=== PATIENT | male | born 1975 ===

== ENCOUNTER 2016-11-05 14:12 | Inpatient (IN) | payer OTHER ==
[2016-11-05 14:38] VITALS: BMI 34.3
[2016-11-05] MEDS ORDERED: Aspirin 325 mg EC Tablets PO STA (15:12)
[2016-11-05] MEDS ORDERED: Aspirin 325 mg EC Tablets PO ONE (15:18)
[2016-11-05 15:40] LABS: BASO # 0.2 K/uL (0.0-0.2); BASO % 1.3 % (0.0-2.0); EOS % 0.1 % (0.0-4.0); LYMPH # 3.6 K/uL (1.0-4.3); LYMPH % 25.3 % (20.0-40.0); MEAN CELL VOLUME 88.2 fL (80.0-94.0); MEAN CORPUSCULAR HEMOGLOBIN 30.5 pg (27.0-31.0); MEAN CORPUSCULAR HGB CONC 34.6 g/dL (33.0-37.0); MEAN PLATELET VOLUME 9.5 fL (7.2-11.7); MONO # 1.4 K/uL (0.0-0.8); MONO % 9.8 % (0.0-10.0); NRBC % 0.1 % (0.0-2.0); RED CELL DISTRIBUTION WIDTH 12.4 % (11.5-14.5); WHITE BLOOD COUNT 14.1 K/uL (4.8-10.8)
--- NOTE | 2016-11-05 15:41 | RAD ---
PROCEDURE: CHEST RADIOGRAPH, 1 VIEW HISTORY: chest pain COMPARISON: None available. FINDINGS: LUNGS: Clear. PLEURA: No pneumothorax or pleural fluid seen. CARDIOVASCULAR: Normal. OSSEOUS STRUCTURES: No significant abnormalities. VISUALIZED UPPER ABDOMEN: Normal. OTHER FINDINGS: None. IMPRESSION: No active disease.
[2016-11-05 15:48] LABS: INR 1.1
[2016-11-05 15:52] LABS: RBC URINE 4 /hpf (0-3); URINE BILIRUBIN NEGATIVE (NEGATIVE); URINE BLOOD NEGATIVE (NEGATIVE); URINE COLOR Yellow (YELLOW); URINE GLUCOSE (UA) 2+ mg/dL (Normal); URINE KETONE 1+ mg/dL (NEGATIVE); URINE LEUKOCYTE ESTERASE NEG Leu/uL (Negative); URINE PROTEIN 3+ mg/dL (NEGATIVE); URINE UROBILINOGEN NORMAL mg/dL (0.2-1.0); WBC URINE 2 /hpf (0-5)
[2016-11-05 15:58] LABS: CHLORIDE 93 mmol/L (98-107); POTASSIUM 3.9 mmol/L (3.6-5.2); SODIUM 137 mmol/L (132-148)
[2016-11-05 16:00] LABS: ALB/GLOB RATIO 1.1 (1.0-2.1); ALKALINE PHOSPHATASE 92 U/L (38-126); ALT/SGPT 56 U/L (21-72); AST/SGOT 54 U/L (17-59); BLOOD UREA NITROGEN 12 mg/dL (9-20); CALCIUM 9.5 mg/dl (8.6-10.4); CARBON DIOXIDE 29 mmol/L (22-30); GFR AFRICAN-AMERICAN > 60; GLUCOSE,RANDOM 292 mg/dL (75-110); TOTAL PROTEIN 8.2 g/dL (6.3-8.3)
[2016-11-05 16:01] LABS: ALCOHOL SERUM < 10 mg/dl (0-10); CHOLESTEROL 258 mg/dL (0-199); MAGNESIUM 1.6 mg/dL (1.6-2.3)
--- NOTE | 2016-11-05 16:26 | C.PDOC ---
Time Seen by Provider: 11/05/16 15:04 Chief Complaint (Nursing): Chest Pain History Per: Patient, Family Onset/Duration Of Symptoms: Hrs (14) Current Symptoms Are (Timing): Gone Severity: Moderate Quality: "Pain" Associated Symptoms: Nausea Modifying Factors: Other Indicated Below Alleviating Factors: None Additional History Per: Prior Records Past Medical History Reviewed: Historical Data, Nursing Documentation, Vital Signs Vital Signs: Last Vital Signs Temp 98.4 F 11/05/16 14:38 Pulse 100 H 11/05/16 16:02 Resp 20 11/05/16 16:02 BP 123/71 11/05/16 16:02 Pulse Ox 97 11/05/16 16:26 - Medical History PMH: HTN (?) Surgical History: No Surg Hx Family History: States: Unknown Family Hx - Social History Hx Tobacco Use: Yes Hx Alcohol Use: Yes Hx Substance Use: No - Immunization History Hx Tetanus Toxoid Vaccination: No Hx Influenza Vaccination: No Hx Pneumococcal Vaccination: No Review Of Systems Except As Marked, All Systems Reviewed And Found Negative. Constitutional: Negative for: Fever, Weakness Cardiovascular: Positive for: Chest Pain Respiratory: Positive for: Cough (?). Negative for: Hemoptysis Gastrointestinal: Positive for: Abdominal Pain (resolved). Negative for: Vomiting Musculoskeletal: Negative for: Neck Pain, Leg Pain Skin: Negative for: Rash Neurological: Positive for: Headache. Negative for: Weakness, Numbness, Seizures, Altered Mental Status Physical Exam - Physical Exam Appears: Non-toxic, No Acute Distress Skin: Normal Color, Warm, Dry, No Rash Head: Atraumatic, Normacephalic Eye(s): bilateral: Normal Inspection, PERRL, EOMI Neck: Normal ROM, Supple Cardiovascular: Rhythm Regular Respiratory: Normal Breath Sounds, No Accessory Muscle Use Gastrointestinal/Abdominal: Soft, No Tenderness Back: No CVA Tenderness Extremity: Normal ROM, No Pedal Edema, No Calf Tenderness Neurological/Psych: Oriented x3, Normal Motor, Normal Sensation ED Course And Treatment - Laboratory Results Result Diagrams: 11/05/16 15:36 11/05/16 15:36 Lab Interpretation: Abnormal Interpretation Of Abnormal: Positive Troponin. Hyperglycemia. Hyperlipidemia. ECG: Interpreted By Me, Viewed By Me ECG Rhythm: Sinus Tachycardia, Nonspecific Changes ECG Interpretation: Abnormal Interpretation Of ECG: Q waves in septal leads and ST elevation in lead V2 only with no reciprocal changes. Rate From EC O2 Sat by Pulse Oximetry: 97 Pulse Ox Interpretation: Normal - Radiology CXR: Viewed By Me, Read By Radiologist CXR Interpretation: Yes: No Acute Disease - Physician Consult Information Physician Contacted: Moshe Carrillo (Cardiology) Outcome Of Conversation: He wants pt admitted to the ICU and given Lovenox 90mg SC, Crestor 40mg po, Plavix 300mg po, and Coreg 3.125mg po. Progress - Interventions Interventions:: Observation, Oxygen - Medications Administered Oral: Antihypertensive, Aspirin, Other (Plavix) Subcutaneous: other (Lovenox) - Data Reviewed Data Reviewed: Lab, Diagnostic imaging, EKG, Old records - Patient Status Patient status: Mostly improved - Critical Care Citical Care: Excluding Proc Time Critical Care Time: 45 minutes - Continuity of Care Discussed patient case with:: Patient, Family-HIPPA compliant, ED Nurse, PMD Discussed pt. case with independent marketing consultant/specialty: Cardiology, Pulmonary/Crit. Care - Patient Plan Patient Plan: Admission, ICU Disposition Discussed With DrEliza: Shira Angel Comment: He accepted pt on his service and wants Dr. Carrillo to be consulted. Counseled Patient/Family Regarding: Studies Performed, Diagnosis, Smoking Cessation - Disposition Disposition: HOSPITALIZED Disposition Time: 16:43 Condition: SERIOUS - Clinical Impression Clinical Impression: NSTEMI (non-ST elevated myocardial infarction), Diabetes mellitus, new onset
[2016-11-05] MEDS ORDERED: Enoxaparin 100 mg Syringe SC STA (16:30)
[2016-11-05] MEDS ORDERED: Pneumococcal 23-Valent Vaccine SC ONE (17:35)
[2016-11-05] MEDS: Sodium Chloride 0.9% 1,000 ML IV SCH (18:19)
--- NOTE | 2016-11-05 18:25 | CP.PCM.HP ---
<Michelet Bird - Last Filed: 11/05/16 18:36> History of Present Illness - History of Present Illness History of Present Illness: 41 year old Male presents to the ED today complaining of mid-sternal chest pain and left arm weakness. Patient states that last night around midnight he was awoken with mid-sternal chest pain rating it a 8/10 which kept him up all night , he denied diaphoresis. He stated he also had lumbar pain and diffuse abdominal pain for the previous two days which had resolved prior to the onset of chest pain. He denied any remitting or exacerbating factors. He states the chest pain resolved as he and his were driving to the hospital today. He endorses a headache but is otherwise currently asymptomatic. He denies dyspnea on exertion and states he is able to walk and climb stairs without issue. He denies shortness of breath, chest pain, blurry vision, fever, chills, diarrhea, vomiting, constipation, pain, cough, parasthesia or numbness. PMD: Dr Kesha Styles PMHx: HTN PSHx: denies Allergies: NKA Meds: denies Social Hx: 1/2 ppd smoker for past 20 years; drinks 2-3 drinks of etoh 3 times a week; unemployed; lives with his and child at home Fam Hx: Mother with HTN, DM; Father from kidney failure Present on Admission - Present on Admission Any Indicators Present on Admission: No Review of Systems - Constitutional Constitutional: Headache - Cardiovascular Cardiovascular: Chest Pain. absent: Diaphoresis, Dyspnea, Dyspnea on Exertion, Orthopnea, Pedal Edema - Respiratory Respiratory: absent: Cough, Wheezing - Gastrointestinal Gastrointestinal: absent: Abdominal Pain, Constipation, Diarrhea - Genitourinary Genitourinary: absent: Difficulty Urinating - Musculoskeletal Musculoskeletal: Muscle Weakness - Endocrine Endocrine: absent: Palpitations Past Patient History - Past Social History Smoking Status: Heavy Smoker > 10 Cigarettes Daily - CARDIAC Hx Hypertension: Yes (?) - MUSCULOSKELETAL/RHEUMATOLOGICAL Hx Falls: No - PSYCHIATRIC Hx Substance Use: No - SURGICAL HISTORY Hx Surgeries: No - ANESTHESIA Hx Anesthesia: No Meds Allergies/Adverse Reactions: Allergies Allergy/AdvReac Type Severity Reaction Status Date / Time No Known Allergies Allergy Unverified 11/05/16 14:35 Physical Exam - Head Exam Head Exam: NORMAL INSPECTION - Eye Exam Eye Exam: EOMI, Normal appearance Pupil Exam: NORMAL ACCOMODATION, PERRL - ENT Exam ENT Exam: Mucous Membranes Moist - Neck Exam Neck exam: Positive for: Normal Inspection - Respiratory Exam Respiratory Exam: Clear to Auscultation Bilateral, NORMAL BREATHING PATTERN. absent: Wheezes - Cardiovascular Exam Cardiovascular Exam: REGULAR RHYTHM, +S1, +S2 - GI/Abdominal Exam GI & Abdominal Exam: Normal Bowel Sounds, Soft - Extremities Exam Extremities exam: Positive for: normal capillary refill, normal inspection, pedal edema - Neurological Exam Neurological exam: Alert, Oriented x3 - Psychiatric Exam Psychiatric exam: Normal Affect, Normal Mood - Skin Skin Exam: Dry, Intact, Normal Color, Warm Results - Vital Signs Recent Vital Signs: Last Vital Signs Temp 99.9 F H 11/05/16 17:15 Pulse 101 H 11/05/16 18:00 Resp 20 11/05/16 18:00 BP 153/100 H 11/05/16 18:00 Pulse Ox 99 11/05/16 18:00 - Labs Result Diagrams: 11/05/16 15:36 11/05/16 15:36 Assessment & Plan (1) NSTEMI (non-ST elevated myocardial infarction) Assessment and Plan: - Troponin I 4.940 - MULUGETA score: 3 points -> 13% risk at 14 days of all cause mortality, new or recurrent WA or need for revascularization - Cath scheduled with Dr Carrillo tomorrow at 8:30am - npo after midnight - serial YOUNG's/EKGs, F/U - Echo, F/U - aspirin 81mg po daily - clopidogrel 75mg po daily - therapeutic lovenox 90mg sc in ED and another dose tonight at 11pm, then hold - cardiology consulted, Dr Carrillo Status: Acute (2) HTN (hypertension) Assessment and Plan: Hx of HTN - elevated BP - losartan 25mg po once - monitor Status: Acute (3) HLD (hyperlipidemia) Assessment and Plan: Triglycerides 151, Cholesterol 258, LDL 207, HDL 47 - fasting lipid panel, F/U - rosuvastatin 40mg po hs daily Status: Acute (4) Diabetes mellitus, new onset Assessment and Plan: Random glucose 292 in ED - HgA1C, F/U - accuchecks achs Status: Acute (5) Abdominal pain Assessment and Plan: Abdominal pain prior to chest pain - amylase, F/U - lipase, F/U - abdominal ultrasound, F/U Status: Acute (6) Elevated WBC count Assessment and Plan: WBC 14.1 - UA positive for protein (3+), glucose (2+), ketone (1+), and RBC (4) - blood culture, F/U - urine culture, F/U - MRSA screen, F/U - repeat urinalysis, F/U - chest xray, F/U Status: Acute (7) Prophylactic measure Assessment and Plan: GI: famotidine 20mg po bid DVT: therapeutic lovonex given, will be stopped tonight at 11pm NS 70cc/hr Status: Acute <Shweta Mccormick V - Last Filed: 11/06/16 01:05> Results - Vital Signs Recent Vital Signs: Last Vital Signs Temp 99.9 F H 11/05/16 20:00 Pulse 98 H 11/05/16 22:50 Resp 18 11/05/16 22:50 BP 143/91 H 11/05/16 22:50 Pulse Ox 100 11/05/16 22:50 - Labs Result Diagrams: 11/05/16 15:36 11/05/16 15:36 Labs: Laboratory Results - last 24 hr 11/05/16 11/05/16 11/05/16 21:10 21:24 21:24 POC Glucose (mg/dL) 214 H Total Creatine Kinase 386 H CK-MB (Mass) 10.8 H Troponin I, Quant 10.0000 H* Amylase 61 Lipase 58 Attending/Attestation - Attestation I have personally seen and examined this patient.: Yes I have fully participated in the care of the patient.: Yes I have reviewed all pertinent clinical information: Yes Notes (Text): Patient seen, examined, and case discussed with patient's PMD: Dr. Kesha Styles, cardiology, and ICU. Patient seen BED 18 ICU approximately 6PM. Patient with hx of hypertension, hyperlipidemia, alcohol use, smoker, and newly diagnosed diabetes on admission, presenting with new-onset chest pain. Patient reports chest pain started at 12 midnight lasted up until 6am in the morning, squeezing chest pain, pain radiating into the left arm and associated diaphoresis. Patient came to the ED around 3pm following this episode of chest pain. Patient reports he had low back pain which travel up the belly, which he reports he gets twice a year and seen by his PMD and take some medication for it , but cannot recall the name, but reports he had chest pain following this pain pattern which was different described above. Patient denies prior hx of angina, denies family hx of WA, reports mother has hx of HTN and DM, reports he can walk without getting tired or exertional angina , example can tolerate [employer] to [place]. Patient reports he has stopped smoking on his own as one week ago. Patient reports he is a heavy alcohol use daily. Patient advised he needs to stop his alcohol use. ROS: +subjective fever +diaphoresis negative hearing loss/changes, denies blurry vision denies sore throat, denies cough, denies [place], reports chest pain but currently does not have chest pain during examination, denies palpitations +abdominal pain but currently does not have abdominal pain during examination, denies nausea, denies vomitting, denies numbness, denies tingling denies BRBPR, denies black tarry stool, denies constipation, denies diarrhea denies dysuria, denies hematuria, denies urgency Discussed with patient at bedside in terms of lifestyle modifications in light of newly diagnosed diabetes, hypertension, and hyperlipidemia. Discussed with ED physician, cardiology Dr Carrillo, ICU, and PMD: Dr Kesha Styles--> patient admitted to ICU for non-stemi, in the ED received dose of Aspirin 325mg , loading dose of Plavix 300mg PO X1, and therapeutic dose of Lovenox. Discussed with Dr Carrillo, patient is planned for cardiac catherization at 8:30AM on 11/06/16. Recommended Aspirin 81mg PO daily, Plavix 75mg PO daily, Coreg 3.125mg PO BID (hold SBP<100 and HR<60), Losartan 25mg PO daily (Hold SBP<100), Pepcid 20mg PO bid, NS 75 cc/hr for 24 hours, and initially 2nd dose of therapuetic Lovenox at 11pm, but he cancelled the follow-up dose. Discussed with Dr. Kesha styles-->abdominal pain pattern patient is describing--> recommended for lipase, amylase in light of alcohol hx. Exam: Neuro: Cranially nerve intact (2-12); strength UE/LE 5/5 General; awake, alert, patient is not in acute distress, but is sweaty on exam HEENT: EOMI, no nystagmus, no scleral icterus Cardio: s1, s2 present, unable to appreciate murmur on my exam; unable to appreciate any cartoid bruit Lung: CTA b/l no W/R/R Abdomen: obese habitus, soft, nontender, no pulsatile mass, no guarding, negative suprapubic tenderness Back: negative CVA tenderness b/l; no paraspinal tenderness Assessment/Plan (1) NSTEMI (non-ST elevated myocardial infarction) Assessment and Plan: * Patient admitted to ICU for Non-STEMI * Cardiology (Dr. Carrillo) on the case-->help appreciated; discussed case with Dr. Carrillo at length * In the ED, patient received dose of Aspirin 325mg, loading dose of Plavix 300mg PO X1, and therapeutic dose of Lovenox. Discussed with Dr Carrillo, patient is planned for cardiac catherization at 8:30AM on 11/06/16. * Discussed with cardiology; Recommended Aspirin 81mg PO daily, Plavix 75mg PO daily, Coreg 3.125mg PO BID (hold SBP<100 and HR<60), Losartan 25mg PO daily ( Hold SBP<100), Pepcid 20mg PO bid, NS 75 cc/hr for 24 hours, and initially 2nd dose of therapuetic Lovenox at 11pm, but he cancelled the follow-up dose. * Initial Troponin: Troponin I 4.940; f/u YOUNG and EKG, Q 6hours X2 * MULUGETA score: 3 points -> 13% risk at 14 days of all cause mortality, new or recurrent WA or need for revascularization (3 CAD risk factors, chest pain, positive troponin) * Cardiac Cath scheduled with Dr Carrillo tomorrow at 8:30am * npo after midnight except for meds * serial YOUNG's/EKGs, F/U * Order for Echo, F/U * Order for FLP, [id number] in AM Status: Acute (2) HTN (hypertension) Assessment and Plan: * Coreg 3.125mg PO BID (hold SBP<100 and HR<60) * Given: losartan 25mg po once today-->order for daily dose Status: Chronic (3) HLD (hyperlipidemia) Assessment and Plan: * Triglycerides 151, Cholesterol 258, LDL 207, HDL 47 (patient ate sandwich today) * fasting lipid panel, F/U * rosuvastatin 40mg po hs * [employer] referral * Advocated for life-style modifications at bedside Status: Chronic (4) Diabetes mellitus, new onset Assessment and Plan: * Random glucose 292 in ED * HgA1C, F/U * accuchecks achs * low dose insulin sliding * [employer] referral; Diabetic nurse education referral Status: Acute (5) Abdominal pain Assessment and Plan: * Abdominal pain prior to chest pain * amylase, F/U * lipase, F/U * abdominal ultrasound, F/U Status: Acute (6) Elevated WBC count Assessment and Plan: * WBC 14.1-->possible due to NON-STEMI-->r/o infectious cause; patient denies UTI symptoms; denies cough * UA positive for protein (3+), glucose (2+), ketone (1+), and RBC (4) * blood culture, F/U * urine culture, F/U * MRSA screen, F/U * repeat urinalysis, * chest xray (11/05/16): no active disease Status: Acute (7) Alcohol Use Assessment and Plan: * Patient is not active withdrawal * No tremors. advised to curb alcohol use Status: Chronic (8) Tobacco abuse; Tobacco cessation Assessment and Plan: * Patient is off smoking for one week on his own prior to hospitalization; patient offered patch to help curb; will think about it Status: Chronic (9) Prophylactic measure Assessment and Plan: * GI: famotidine 20mg po bid * DVT: therapeutic lovonex given, will be stopped tonight at 11pm-->f/u cardio cancelled 11pm dose * NS 70cc/hr for 24 hours * NPO after midnight except for medications Status: Acute
--- NOTE | 2016-11-05 19:19 | CP.PCM.CON ---
<Michelet Bird - Last Filed: 11/05/16 19:16> History of Present Illness - History of Present Illness History of Present Illness: 41 year old Male presents to the ED today complaining of mid-sternal chest pain and left arm weakness. Patient states that last night around midnight he was awoken with mid-sternal chest pain rating it a 8/10 which kept him up all night , he denied diaphoresis. He stated he also had lumbar pain and diffuse abdominal pain for the previous two days which had resolved prior to the onset of chest pain. He denied any remitting or exacerbating factors. He states the chest pain resolved as he and his were driving to the hospital today. He endorses a headache but is otherwise currently asymptomatic. He denies dyspnea on exertion and states he is able to walk and climb stairs without issue. He denies shortness of breath, chest pain, blurry vision, fever, chills, diarrhea, vomiting, constipation, pain, cough, parasthesia or numbness. PMD: Dr Kesha Angel PMHx: HTN PSHx: denies Allergies: NKA Meds: denies Social Hx: 1/2 ppd smoker for past 20 years; drinks 2-3 drinks of etoh 3 times a week; unemployed; lives with his and child at home Fam Hx: Mother with HTN, DM; Father from kidney failure Review of Systems - Constitutional Constitutional: Headache - Cardiovascular Cardiovascular: Chest Pain. absent: Diaphoresis, Dyspnea on Exertion - Respiratory Respiratory: absent: Cough, Wheezing - Gastrointestinal Gastrointestinal: absent: Abdominal Pain, Constipation, Diarrhea - Genitourinary Genitourinary: absent: Change in Urinary Stream, Difficulty Urinating - Musculoskeletal Musculoskeletal: absent: Joint Swelling Past Patient History - Past Social History Smoking Status: Heavy Smoker > 10 Cigarettes Daily - CARDIAC Hx Hypertension: Yes (?) - MUSCULOSKELETAL/RHEUMATOLOGICAL Hx Falls: No - PSYCHIATRIC Hx Substance Use: No - SURGICAL HISTORY Hx Surgeries: No - ANESTHESIA Hx Anesthesia: No Meds Allergies/Adverse Reactions: Allergies Allergy/AdvReac Type Severity Reaction Status Date / Time No Known Allergies Allergy Unverified 11/05/16 14:35 - Medications Medications: Current Medications Aspirin (Ecotrin) 81 mg PO DAILY TEN Clopidogrel Bisulfate (Plavix) 75 mg PO DAILY TEN Enoxaparin Sodium (Lovenox) 90 mg SC ONCE ONE Stop: 11/05/16 23:01 Famotidine (Pepcid) 20 mg PO BID [facility] Last Admin: 11/05/16 18:22 Dose: 20 mg Sodium Chloride (Sodium Chloride 0.9%) 1,000 mls @ 70 mls/hr IV .[id number] [facility] Last Admin: 11/05/16 18:19 Dose: 70 mls/hr Rosuvastatin Calcium (Crestor) 40 mg PO [facility] Physical Exam - Head Exam Head Exam: NORMAL INSPECTION - Eye Exam Eye Exam: EOMI, Normal appearance Pupil Exam: NORMAL ACCOMODATION, PERRL - ENT Exam ENT Exam: Mucous Membranes Moist - Neck Exam Neck exam: Positive for: Normal Inspection - Respiratory Exam Respiratory Exam: Clear to Auscultation Bilateral, NORMAL BREATHING PATTERN - Cardiovascular Exam Cardiovascular Exam: REGULAR RHYTHM, +S1, +S2 - GI/Abdominal Exam GI & Abdominal Exam: Normal Bowel Sounds, Soft. absent: Tenderness - Back Exam Back exam: NORMAL INSPECTION - Neurological Exam Neurological exam: Alert, Oriented x3 - Psychiatric Exam Psychiatric exam: Normal Affect, Normal Mood - Skin Skin Exam: Dry, Intact, Normal Color, Warm Results - Vital Signs Recent Vital Signs: Last Vital Signs Temp 99.9 F H 11/05/16 17:15 Pulse 101 H 11/05/16 18:00 Resp 20 11/05/16 18:00 BP 153/100 H 11/05/16 18:00 Pulse Ox 99 11/05/16 18:00 - Labs Result Diagrams: 11/05/16 15:36 11/05/16 15:36 Assessment & Plan (1) NSTEMI (non-ST elevated myocardial infarction) Assessment and Plan: - Troponin I 4.940 - MULUGETA score: 3 points -> 13% risk at 14 days of all cause mortality, new or recurrent NM or need for revascularization - Cath scheduled with Dr Carrillo tomorrow at 8:30am - npo after midnight - serial YOUNG's/EKGs, F/U - Echo, F/U - aspirin 81mg po daily - clopidogrel 75mg po daily - therapeutic lovenox 90mg sc in ED and another dose tonight at 11pm, then hold - cardiology consulted, Dr Carrillo Status: Acute (2) HTN (hypertension) Assessment and Plan: Hx of HTN - elevated BP - losartan 25mg po once - monitor Status: Acute (3) HLD (hyperlipidemia) Assessment and Plan: Triglycerides 151, Cholesterol 258, LDL 207, HDL 47 - fasting lipid panel, F/U - rosuvastatin 40mg po hs daily Status: Acute (4) Diabetes mellitus, new onset Assessment and Plan: Random glucose 292 in ED - HgA1C, F/U - accuchecks achs Status: Acute (5) Abdominal pain Assessment and Plan: Abdominal pain prior to chest pain - amylase, F/U - lipase, F/U - abdominal ultrasound, F/U Status: Acute (6) Elevated WBC count Assessment and Plan: WBC 14.1 - UA positive for protein (3+), glucose (2+), ketone (1+), and RBC (4) - blood culture, F/U - urine culture, F/U - MRSA screen, F/U - repeat urinalysis, F/U - chest xray, F/U Status: Acute (7) Prophylactic measure Assessment and Plan: GI: famotidine 20mg po bid DVT: therapeutic lovonex given, will be stopped tonight at 11pm NS 70cc/hr Status: Acute <Rubio Barrera - Last Filed: 11/05/16 19:50> History of Present Illness - History of Present Illness History of Present Illness: [facility] Pt is 41 yo male with hx HLD /HTN on no meds to ED c/o of chest pain from last night. Pain styarted in back and epigastrium. No diaphoresis /palp. /sob /n /v / fever /urinary sx. Pain relieved in ED. Pt seen by Cardiology who is requesting ICU monitoring, ROS- as noted All- NKDA Social-+tob/ +etoh/ denied drugs / unemployed Meds- none FH- HTN/DM PE T-99.9 P-105 R-20 BP-153/105 Alert obese young male, NAD Neck- no jvdlungs- bilat bs Heart-rr aBd- bs+, soft, nontender Ext- no edema, nontender, pulses intact bilat Neuro- nonfocal Labs, EKG's, [id number] A&P Acute NM HTN HLD DM + smoker ETOH Abuse Admit to ICU ASA/Plavix /BB /Statin /AC BP control ECHO Cardiac Cath in AM as per Card. MVI /thiamine / folic acid observe for withdrawal f/u EKG /CE maintain optimal lytes d/w [facility] Meds - Medications Medications: Current Medications Aspirin (Ecotrin) 81 mg PO DAILY [facility] Clopidogrel Bisulfate (Plavix) 75 mg PO DAILY [facility] Enoxaparin Sodium (Lovenox) 90 mg SC ONCE ONE Stop: 11/05/16 23:01 Famotidine (Pepcid) 20 mg PO BID [facility] Last Admin: 11/05/16 18:22 Dose: 20 mg Sodium Chloride (Sodium Chloride 0.9%) 1,000 mls @ 70 mls/hr IV .[id number] [facility] Last Admin: 11/05/16 18:19 Dose: 70 mls/hr Rosuvastatin Calcium (Crestor) 40 mg PO HS [facility] Results - Vital Signs Recent Vital Signs: Last Vital Signs Temp 99.9 F H 11/05/16 17:15 Pulse 101 H 11/05/16 18:00 Resp 20 11/05/16 18:00 BP 153/100 H 11/05/16 18:00 Pulse Ox 99 11/05/16 18:00 - Labs Result Diagrams: 11/05/16 15:36 11/05/16 15:36 Assessment & Plan (1) NSTEMI (non-ST elevated myocardial infarction) Status: Acute (2) HTN (hypertension) Status: Acute (3) HLD (hyperlipidemia) Status: Chronic (4) Diabetes mellitus, new onset Status: Acute
[2016-11-05] MEDS: (Novolin R) Insulin Human Regular 100 units/ml vial SC SCH (21:34)
[2016-11-05 21:45] LABS: AMYLASE 61 U/L (30-110)
[2016-11-05] MEDS ORDERED: Nitroglycerin 50mg in D5W 50 MG/250 ML BOTTLE IV SCH (22:30)
[2016-11-05] MEDS ORDERED: Enoxaparin 100 mg Syringe SC ONE (23:00)
[2016-11-06] MEDS ORDERED: Acetaminophen 650mg/20.3ml solution UD PO STA ×2 (00:32→06:33)
[2016-11-06 06:00] LABS: BASO # 0.1 K/uL (0.0-0.2); BASO % 0.6 % (0.0-2.0); EOS % 0.1 % (0.0-4.0); HEMATOCRIT 45.8 % (35.0-51.0); LYMPH # 3.3 K/uL (1.0-4.3); LYMPH % 25.1 % (20.0-40.0); MEAN CELL VOLUME 89.2 fL (80.0-94.0); MEAN CORPUSCULAR HEMOGLOBIN 29.7 pg (27.0-31.0); MEAN CORPUSCULAR HGB CONC 33.3 g/dL (33.0-37.0); MEAN PLATELET VOLUME 10.5 fL (7.2-11.7); MONO # 1.7 K/uL (0.0-0.8); MONO % 13.1 % (0.0-10.0); NRBC % 0.1 % (0.0-2.0); RED CELL DISTRIBUTION WIDTH 12.1 % (11.5-14.5); WHITE BLOOD COUNT 13.2 K/uL (4.8-10.8)
[2016-11-06 06:05] LABS: CHLORIDE 98 mmol/L (98-107); POTASSIUM 3.8 mmol/L (3.6-5.2); SODIUM 139 mmol/L (132-148)
[2016-11-06 06:07] LABS: GFR AFRICAN-AMERICAN > 60
[2016-11-06 06:08] LABS: ALB/GLOB RATIO 1.1 (1.0-2.1); ALKALINE PHOSPHATASE 82 U/L (38-126); ALT/SGPT 47 U/L (21-72); AST/SGOT 62 U/L (17-59); BILIRUBIN,TOTAL 1.2 mg/dL (0.2-1.3); BLOOD UREA NITROGEN 12 mg/dL (9-20); CALCIUM 8.9 mg/dl (8.6-10.4); CARBON DIOXIDE 22 mmol/L (22-30); GLUCOSE,RANDOM 233 mg/dL (75-110); PHOSPHOROUS 3.2 mg/dL (2.5-4.5); TOTAL PROTEIN 7.3 g/dL (6.3-8.3)
[2016-11-06 06:09] LABS: MAGNESIUM 1.7 mg/dL (1.6-2.3)
--- NOTE | 2016-11-06 07:43 | CP.CCUPN ---
<Michelet Bird R - Last Filed: 11/06/16 16:23> CCU Subjective - Physician Review Subjective (Free Text): Patient seen and examined s/p cardiac catherization with Dr Carrillo. Patient complains of headache. He is aware of the cardiac cath findings and upcoming PCI tomorrow 11/07 at [place]. Patient has no other complaints, he denies chest pain, denies palpitations, shortness of breath, abdominal pain, nausea, vomiting , diarrhea, constipation. 11/06/16 16:23 CCU Objective - Vital Signs / Intake & Output Vital Signs (Last 4 hours): Vital Signs Temp Pulse Resp BP Pulse Ox 11/06/16 06:00 101.3 F H 86 18 107/64 96 11/06/16 05:00 90 17 114/63 11/06/16 04:00 100.8 F H 87 17 106/67 95 Intake and Output (Last 8hrs): Intake & Output 11/05/16 11/06/16 11/06/16 22:59 06:59 14:59 Intake Total 280 585.5 Output Total 700 Balance 280 -114.5 Weight 197 lb 195 lb 6 oz Intake: IV 3 Intake, IV Amount 280 582.5 Right Antecubital 280 560 Right Forearm 22.5 Oral 0 Output: Urine 700 Urine, Voided 700 Other: # Voids Urine, Voided 1 # Bowel Movements 0 - Physical Exam Head: Positive for: Normocephalic Pupils: Positive for: PERRL Extroacular Muscles: Positive for: EOMI Mouth: Positive for: Moist Mucous Membranes Neck: Positive for: Normal Range of Motion. Negative for: JVD Respiratory/Chest: Positive for: Clear to Auscultation. Negative for: Wheezes Cardiovascular: Positive for: Regular Rate and Rhythm, Normal S1, S2 Abdomen: Positive for: Normal Bowel Sounds. Negative for: Tenderness, Distention Upper Extremity: Positive for: Normal Inspection. Negative for: Edema Lower Extremity: Positive for: Normal Inspection. Negative for: Edema Neurological: Positive for: Speech Normal Skin: Positive for: Warm, Dry, Normal Color Psychiatric: Positive for: Alert, Oriented x 3, Normal Insight, Normal Concentration - Medications Active Medications: Active Medications Generic Name Dose Route Start Last Admin Trade Name Freq PRN Reason Stop Dose Admin Aspirin 81 mg 11/06/16 10:00 Ecotrin PO DAILY TEN Carvedilol 3.125 mg 11/06/16 10:00 Coreg PO Q12 TEN Clopidogrel Bisulfate 75 mg 11/06/16 10:00 Plavix PO DAILY [facility] Famotidine 20 mg 11/05/16 18:15 11/05/16 18:22 Pepcid PO 20 mg BID TEN Administration Sodium Chloride 1,000 mls @ 70 mls/hr 11/05/16 18:15 11/05/16 18:19 Sodium Chloride 0.9% IV 11/06/16 18:16 70 mls/hr .[id number] TEN Administration Nitroglycerin/Dextrose 50 mg in 250 mls @ 1.5 mls/hr 11/05/16 22:30 11/06/16 00:00 Nitroglycerin 50 Mg/250 Ml D5w IV 10 mcg/min .Q24H TEN 3 mls/hr Protocol Titration 5 MCG/MIN Insulin Human Regular 0 unit 11/05/16 22:00 11/05/16 21:34 Novolin R SC Not Given ACHS TEN Protocol Losartan Potassium 25 mg 11/06/16 10:00 Cozaar PO DAILY [facility] Rosuvastatin Calcium 40 mg 11/05/16 22:00 11/05/16 22:00 Crestor PO 40 mg HS TEN Administration - Patient Studies Lab Studies: Lab Studies 11/06/16 11/06/16 11/06/16 Range/Units 05:48 05:48 04:04 WBC 13.2 H (4.8-10.8) K/uL RBC 5.14 (4.40-5.90) Mil/uL Hgb 15.3 (12.0-18.0) g/dL Hct 45.8 (35.0-51.0) % MCV 89.2 (80.0-94.0) fL MCH 29.7 (27.0-31.0) pg MCHC 33.3 (33.0-37.0) g/dL RDW 12.1 (11.5-14.5) % Plt Count 168 (130-400) K/uL MPV 10.5 (7.2-11.7) fL Neut % (Auto) 61.1 (50.0-75.0) % Lymph % (Auto) 25.1 (20.0-40.0) % Wirt % (Auto) 13.1 H (0.0-10.0) % Eos % (Auto) 0.1 (0.0-4.0) % Baso % (Auto) 0.6 (0.0-2.0) % Neut # 8.1 H (1.8-7.0) K/uL Lymph # 3.3 (1.0-4.3) K/uL Wirt # 1.7 H (0.0-0.8) K/uL Eos # 0.0 (0.0-0.7) K/uL Baso # 0.1 (0.0-0.2) K/uL Sodium 139 (132-148) mmol/L Potassium 3.8 (3.6-5.2) mmol/L Chloride 98 (98-107) mmol/L Carbon Dioxide 22 (22-30) mmol/L Anion Gap 23 H (10-20) BUN 12 (9-20) mg/dL Creatinine 0.6 L (0.8-1.5) MG/DL Est GFR ( Amer) > 60 Est GFR (Non-Af Amer) > 60 POC Glucose (mg/dL) (65-110) mg/dL Random Glucose 233 H (75-110) mg/dL Calcium 8.9 (8.6-10.4) mg/dl Phosphorus 3.2 (2.5-4.5) mg/dL Magnesium 1.7 (1.6-2.3) mg/dL Total Bilirubin 1.2 (0.2-1.3) mg/dL AST 62 H (17-59) U/L ALT 47 (21-72) U/L Alkaline Phosphatase 82 (38-126) U/L Total Creatine Kinase (55-170) U/L CK-MB (Mass) (0.0-3.38) ng/mL Troponin I, Quant (0.00-0.120) ng/mL Total Protein 7.3 (6.3-8.3) g/dL Albumin 3.8 (3.5-5.0) g/dL Globulin 3.5 (2.2-3.9) gm/dL Albumin/Globulin Ratio 1.1 (1.0-2.1) Triglycerides (0-149) mg/dL Cholesterol (0-199) mg/dL LDL Cholesterol Direct (0-129) mg/dL HDL Cholesterol (30-70) mg/dL Amylase (30-110) U/L Lipase (23-300) U/L TSH 3rd Generation 0.32 L (0.46-4.68) mIU/L 11/06/16 11/05/16 11/05/16 Range/Units 04:04 21:24 21:24 WBC (4.8-10.8) K/uL RBC (4.40-5.90) Mil/uL Hgb (12.0-18.0) g/dL Hct (35.0-51.0) % MCV (80.0-94.0) fL MCH (27.0-31.0) pg MCHC (33.0-37.0) g/dL RDW (11.5-14.5) % Plt Count (130-400) K/uL MPV (7.2-11.7) fL Neut % (Auto) (50.0-75.0) % Lymph % (Auto) (20.0-40.0) % Wirt % (Auto) (0.0-10.0) % Eos % (Auto) (0.0-4.0) % Baso % (Auto) (0.0-2.0) % Neut # (1.8-7.0) K/uL Lymph # (1.0-4.3) K/uL Wirt # (0.0-0.8) K/uL Eos # (0.0-0.7) K/uL Baso # (0.0-0.2) K/uL Sodium (132-148) mmol/L Potassium (3.6-5.2) mmol/L Chloride (98-107) mmol/L Carbon Dioxide (22-30) mmol/L Anion Gap (10-20) BUN (9-20) mg/dL Creatinine (0.8-1.5) MG/DL Est GFR ( Amer) Est GFR (Non-Af Amer) POC Glucose (mg/dL) (65-110) mg/dL Random Glucose (75-110) mg/dL Calcium (8.6-10.4) mg/dl Phosphorus (2.5-4.5) mg/dL Magnesium (1.6-2.3) mg/dL Total Bilirubin (0.2-1.3) mg/dL AST (17-59) U/L ALT (21-72) U/L Alkaline Phosphatase (38-126) U/L Total Creatine Kinase 416 H 386 H (55-170) U/L CK-MB (Mass) 8.72 H 10.8 H (0.0-3.38) ng/mL Troponin I, Quant 8.6600 H* 10.0000 H* (0.00-0.120) ng/mL Total Protein (6.3-8.3) g/dL Albumin (3.5-5.0) g/dL Globulin (2.2-3.9) gm/dL Albumin/Globulin Ratio (1.0-2.1) Triglycerides 143 (0-149) mg/dL Cholesterol 216 H (0-199) mg/dL LDL Cholesterol Direct 171 H (0-129) mg/dL HDL Cholesterol 40 (30-70) mg/dL Amylase 61 (30-110) U/L Lipase 58 (23-300) U/L TSH 3rd Generation (0.46-4.68) mIU/L 11/05/16 Range/Units 21:10 WBC (4.8-10.8) K/uL RBC (4.40-5.90) Mil/uL Hgb (12.0-18.0) g/dL Hct (35.0-51.0) % MCV (80.0-94.0) fL MCH (27.0-31.0) pg MCHC (33.0-37.0) g/dL RDW (11.5-14.5) % Plt Count (130-400) K/uL MPV (7.2-11.7) fL Neut % (Auto) (50.0-75.0) % Lymph % (Auto) (20.0-40.0) % Wirt % (Auto) (0.0-10.0) % Eos % (Auto) (0.0-4.0) % Baso % (Auto) (0.0-2.0) % Neut # (1.8-7.0) K/uL Lymph # (1.0-4.3) K/uL Wirt # (0.0-0.8) K/uL Eos # (0.0-0.7) K/uL Baso # (0.0-0.2) K/uL Sodium (132-148) mmol/L Potassium (3.6-5.2) mmol/L Chloride (98-107) mmol/L Carbon Dioxide (22-30) mmol/L Anion Gap (10-20) BUN (9-20) mg/dL Creatinine (0.8-1.5) MG/DL Est GFR ( Amer) Est GFR (Non-Af Amer) POC Glucose (mg/dL) 214 H (65-110) mg/dL Random Glucose (75-110) mg/dL Calcium (8.6-10.4) mg/dl Phosphorus (2.5-4.5) mg/dL Magnesium (1.6-2.3) mg/dL Total Bilirubin (0.2-1.3) mg/dL AST (17-59) U/L ALT (21-72) U/L Alkaline Phosphatase (38-126) U/L Total Creatine Kinase (55-170) U/L CK-MB (Mass) (0.0-3.38) ng/mL Troponin I, Quant (0.00-0.120) ng/mL Total Protein (6.3-8.3) g/dL Albumin (3.5-5.0) g/dL Globulin (2.2-3.9) gm/dL Albumin/Globulin Ratio (1.0-2.1) Triglycerides (0-149) mg/dL Cholesterol (0-199) mg/dL LDL Cholesterol Direct (0-129) mg/dL HDL Cholesterol (30-70) mg/dL Amylase (30-110) U/L Lipase (23-300) U/L TSH 3rd Generation (0.46-4.68) mIU/L Laboratory Results - last 24 hr 11/05/16 11/05/16 11/05/16 21:10 21:24 21:24 WBC RBC Hgb Hct MCV MCH MCHC RDW Plt Count MPV Neut % (Auto) Lymph % (Auto) Wirt % (Auto) Eos % (Auto) Baso % (Auto) Neut # Lymph # Wirt # Eos # Baso # Sodium Potassium Chloride Carbon Dioxide Anion Gap BUN Creatinine Est GFR ( Amer) Est GFR (Non-Af Amer) POC Glucose (mg/dL) 214 H Random Glucose Calcium Phosphorus Magnesium Total Bilirubin AST ALT Alkaline Phosphatase Total Creatine Kinase 386 H CK-MB (Mass) 10.8 H Troponin I, Quant 10.0000 H* Total Protein Albumin Globulin Albumin/Globulin Ratio Triglycerides Cholesterol LDL Cholesterol Direct HDL Cholesterol Amylase 61 Lipase 58 TSH 3rd Generation 11/06/16 11/06/16 11/06/16 04:04 04:04 05:48 WBC RBC Hgb Hct MCV MCH MCHC RDW Plt Count MPV Neut % (Auto) Lymph % (Auto) Wirt % (Auto) Eos % (Auto) Baso % (Auto) Neut # Lymph # Wirt # Eos # Baso # Sodium 139 Potassium 3.8 Chloride 98 Carbon Dioxide 22 Anion Gap 23 H BUN 12 Creatinine 0.6 L Est GFR ( Amer) > 60 Est GFR (Non-Af Amer) > 60 POC Glucose (mg/dL) Random Glucose 233 H Calcium 8.9 Phosphorus 3.2 Magnesium 1.7 Total Bilirubin 1.2 AST 62 H ALT 47 Alkaline Phosphatase 82 Total Creatine Kinase 416 H CK-MB (Mass) 8.72 H Troponin I, Quant 8.6600 H* Total Protein 7.3 Albumin 3.8 Globulin 3.5 Albumin/Globulin Ratio 1.1 Triglycerides 143 Cholesterol 216 H LDL Cholesterol Direct 171 H HDL Cholesterol 40 Amylase Lipase TSH 3rd Generation 0.32 L 11/06/16 05:48 WBC 13.2 H RBC 5.14 Hgb 15.3 Hct 45.8 MCV 89.2 MCH 29.7 MCHC 33.3 RDW 12.1 Plt Count 168 MPV 10.5 Neut % (Auto) 61.1 Lymph % (Auto) 25.1 Wirt % (Auto) 13.1 H Eos % (Auto) 0.1 Baso % (Auto) 0.6 Neut # 8.1 H Lymph # 3.3 Wirt # 1.7 H Eos # 0.0 Baso # 0.1 Sodium Potassium Chloride Carbon Dioxide Anion Gap BUN Creatinine Est GFR ( Amer) Est GFR (Non-Af Amer) POC Glucose (mg/dL) Random Glucose Calcium Phosphorus Magnesium Total Bilirubin AST ALT Alkaline Phosphatase Total Creatine Kinase CK-MB (Mass) Troponin I, Quant Total Protein Albumin Globulin Albumin/Globulin Ratio Triglycerides Cholesterol LDL Cholesterol Direct HDL Cholesterol Amylase Lipase TSH 3rd Generation EKG/Cardiology Studies: Cardiology / EKG Studies 11/05/16 21:30 EKG [ELECTROCARDIOGRAM] Timed Comment: Mode Of Transportation: Reason For Exam: chest pain 11/06/16 03:30 EKG [ELECTROCARDIOGRAM] Timed Comment: Mode Of Transportation: Reason For Exam: chest pain; elevated trop Fingerstick Blood Sugar Results: 214 Review of Systems - Constitutional Constitutional: absent: Fever, Chills, Sweats - EENT Eyes: UNREMARKABLE Ears: UNREMARKABLE Nose/Mouth/Throat: UNREMARKABLE - Cardiovascular Cardiovascular: UNREMARKABLE - Respiratory Respiratory: UNREMARKABLE - Gastrointestinal Gastrointestinal: UNREMARKABLE - Genitourinary Genitourinary: UNREMARKABLE - Musculoskeletal Musculoskeletal: UNREMARKABLE - Neurological Neurological: Headaches - Psychiatric Psychiatric: UNREMARKABLE Critical Care Progress Note - Nutrition Nutrition: Nutrition Category Date Time Status NPO Diet [DIET] Diets 11/05/16 Breakfast Active Assessment/Plan (1) NSTEMI (non-ST elevated myocardial infarction) Current Visit: Yes Status: Acute (2) HTN (hypertension) Current Visit: Yes Status: Acute (3) HLD (hyperlipidemia) Current Visit: Yes Status: Chronic (4) Diabetes mellitus, new onset Current Visit: Yes Status: Acute (5) Abdominal pain Current Visit: Yes Status: Acute (6) Elevated WBC count Current Visit: Yes Status: Acute (7) Prophylactic measure Current Visit: Yes Status: Acute - Assessment and Plan (Free Text) Assessment: 41 year old Male with PMHx of HTN, HLD, new onset DM, smoking, etOh use, presenting to ED with chest pain and found to have NSTEMI. He underwent cardiac cath today 11/06 and was found to have 99% occlusion of LAD. Scheduled for PCI tomorrow at [place] with Dr Carrillo. Neuro: Pulmonary: CV: NSTEMI; Hx of HTN; Hx of HLD - PCI scheduled with Dr Carrillo tomorrow at [place] on 11/07; emtala form is filled by cardiology for tomorrow - Patient underwent cardiac cath today 11/06: 99% occulusion of LAD - npo after midnight except meds - currently on heparin drip - low dose cardiac protocol, stop tomorrow at 8am, F /U PTT tonight - Troponin: 4.94-->10.000-->8.66 - Pro-BNP: 1640 - Echo, F/U official report - aspirin 81mg po daily - clopidogrel 75mg po daily - therapeutic lovenox 90mg sc in ED and another dose tonight at 11pm, then hold - losartan 25mg po daily (hold sbp < 100) - crestor 40mg po hs daily - carvedilol 3.125 mg po q12 (hold sbp < 100 or HR < 60) - Triglycerides 151, Cholesterol 258, LDL 207, HDL 47 - MULUGETA score: 3 points -> 13% risk at 14 days of all cause mortality, new or recurrent AR or need for revascularization - cardiology consulted, Dr Carrillo Endocrine: new onset DM2; hypothyroidism - Random glucose 292 in ED - insulin novolin low dose protocol - HgA1C 11.4 - accuchecks achs - lisinopril 2.5mg po daily - TSH 0.32 GI: abdominal pain - resolved - amylase 61, lipase 58 - abdominal ultrasound (11/06): mild hepatomegaly. Diffuse increased echogenicity in the liver may reflect hepatic steatosis, however parenchymal infectious/inflammatory etiologies cannot be entirely excluded - famotidine 20mg po bid Heme: Renal: MSK: ID: elevated wbc count - downtrending - chest xray (11/05/16): no active disease - UA positive for protein (3+), glucose (2+), ketone (1+), and RBC (4) - repeat UA positive for protein (2+), glucose (3+), ketone (1+), and RBC (9) - zosyn 3.375 iv q8 - procalcitonin 0.06 Prophylaxis: - GI: famotidine 20mg po bid - DVT: Heparin drip - Fluids: NS 70cc/hr until departure for PCI tomorrow <Houston Byrne - Last Filed: 11/06/16 17:52> CCU Objective - Vital Signs / Intake & Output Vital Signs (Last 4 hours): Vital Signs Temp Pulse Resp BP Pulse Ox 11/06/16 17:00 89 12 95 11/06/16 16:50 87 18 93 L 11/06/16 16:40 87 19 96 11/06/16 16:35 94 H 26 H 131/85 99 11/06/16 16:30 86 25 H 96 11/06/16 16:20 84 21 134/80 98 11/06/16 16:10 90 21 94 L 11/06/16 16:08 85 16 135/81 100 11/06/16 16:06 101.1 F H 11/06/16 16:00 101.1 F H 83 23 99 11/06/16 15:50 91 H 17 98 11/06/16 15:40 90 26 H 99 11/06/16 15:30 92 H 12 99 11/06/16 15:20 93 H 21 100 11/06/16 15:10 88 21 100 11/06/16 15:05 84 16 123/66 99 11/06/16 15:00 86 16 97 11/06/16 14:50 83 23 105/72 100 11/06/16 14:40 81 15 99 11/06/16 14:35 85 21 122/72 99 11/06/16 14:30 88 24 100 11/06/16 14:20 88 24 124/80 99 11/06/16 14:10 87 26 H 100 11/06/16 14:05 92 H 16 125/78 11/06/16 14:00 91 H 25 H 100 11/06/16 13:53 93 H Intake and Output (Last 8hrs): Intake & Output 11/06/16 11/06/16 11/06/16 06:59 14:59 22:59 Intake Total 585.5 992.2 343.3 Output Total 700 Balance -114.5 992.2 343.3 Weight 195 lb 6 oz Intake: IV 3 Intake, IV Amount 582.5 592.2 243.3 Left Antecubital 16.2 24.3 Right Antecubital 560 555 210 Right Forearm 22.5 21 9 Oral 400 100 Output: Urine 700 Urine, Voided 700 Other: # Voids Urine, Voided 1 # Bowel Movements 0 - Medications Active Medications: Active Medications Generic Name Dose Route Start Last Admin Trade Name Freq PRN Reason Stop Dose Admin Aspirin 81 mg 11/06/16 10:00 11/06/16 11:05 Ecotrin PO 81 mg DAILY TEN Administration Carvedilol 3.125 mg 11/06/16 10:00 11/06/16 11:05 Coreg PO 3.125 mg Q12 TEN Administration Clopidogrel Bisulfate 75 mg 11/06/16 10:00 11/06/16 11:05 Plavix PO 75 mg DAILY TEN Administration Famotidine 20 mg 11/05/16 18:15 11/06/16 17:34 Pepcid PO 20 mg BID TEN Administration Sodium Chloride 1,000 mls @ 70 mls/hr 11/05/16 18:15 11/06/16 09:14 Sodium Chloride 0.9% IV 11/07/16 10:16 70 mls/hr .[id number] TEN Administration Nitroglycerin/Dextrose 50 mg in 250 mls @ 1.5 mls/hr 11/05/16 22:30 11/06/16 00:00 Nitroglycerin 50 Mg/250 Ml D5w IV 10 mcg/min .Q24H TEN 3 mls/hr Protocol Titration 5 MCG/MIN Piperacillin Sod/Tazobactam 100 mls @ 200 mls/hr 11/06/16 08:00 11/06/16 17: 00 Sod 3.375 gm/ Sodium Chloride IVPB 200 mls/hr Q8H TEN Administration Heparin Sodium/Sodium Chloride 25,000 units in 250 mls @ 8.118 mls/hr 10:30 11/06/16 11:54 Heparin 15416 Units/250ml 1/2 Normal Saline IV 9.16 units/kg/hr .Q24H PRN 8.118 mls/hr PROTOCOL Administration Protocol 9.16 UNITS/KG/HR Heparin Sodium/Sodium Chloride 25,000 units in 250 mls @ 8.862 mls/hr 11:18 Heparin 72547 Units/250ml 1/2 Normal Saline IV 11/07/16 08:00 .Q24H PRN ADJUST RATE PER PROTOCOL Protocol 10 UNITS/KG/HR Insulin Human Regular 0 unit 11/05/16 22:00 11/06/16 17:34 Novolin R SC 2 unit ACHS TEN Administration Protocol Losartan Potassium 25 mg 11/06/16 10:00 11/06/16 11:05 Cozaar PO 25 mg DAILY TEN Administration Rosuvastatin Calcium 40 mg 11/05/16 22:00 11/05/16 22:00 Crestor PO 40 mg HS TEN Administration - Patient Studies Lab Studies: Lab Studies 11/06/16 11/06/16 11/06/16 Range/Units 16:06 11:24 09:31 WBC (4.8-10.8) K/uL RBC (4.40-5.90) Mil/uL Hgb (12.0-18.0) g/dL Hct (35.0-51.0) % MCV (80.0-94.0) fL MCH (27.0-31.0) pg MCHC (33.0-37.0) g/dL RDW (11.5-14.5) % Plt Count (130-400) K/uL MPV (7.2-11.7) fL Neut % (Auto) (50.0-75.0) % Lymph % (Auto) (20.0-40.0) % Wirt % (Auto) (0.0-10.0) % Eos % (Auto) (0.0-4.0) % Baso % (Auto) (0.0-2.0) % Neut # (1.8-7.0) K/uL Lymph # (1.0-4.3) K/uL Wirt # (0.0-0.8) K/uL Eos # (0.0-0.7) K/uL Baso # (0.0-0.2) K/uL Sodium (132-148) mmol/L Potassium (3.6-5.2) mmol/L Chloride (98-107) mmol/L Carbon Dioxide (22-30) mmol/L Anion Gap (10-20) BUN (9-20) mg/dL Creatinine (0.8-1.5) MG/DL Est GFR ( Amer) Est GFR (Non-Af Amer) POC Glucose (mg/dL) 241 H 216 H (65-110) mg/dL Random Glucose (75-110) mg/dL Hemoglobin A1c (4.2-6.5) % Calcium (8.6-10.4) mg/dl Phosphorus (2.5-4.5) mg/dL Magnesium (1.6-2.3) mg/dL Total Bilirubin (0.2-1.3) mg/dL AST (17-59) U/L ALT (21-72) U/L Alkaline Phosphatase (38-126) U/L Total Creatine Kinase (55-170) U/L CK-MB (Mass) (0.0-3.38) ng/mL Troponin I, Quant (0.00-0.120) ng/mL Total Protein (6.3-8.3) g/dL Albumin (3.5-5.0) g/dL Globulin (2.2-3.9) gm/dL Albumin/Globulin Ratio (1.0-2.1) Triglycerides (0-149) mg/dL Cholesterol (0-199) mg/dL LDL Cholesterol Direct (0-129) mg/dL HDL Cholesterol (30-70) mg/dL Amylase (30-110) U/L Lipase (23-300) U/L Procalcitonin 0.06 L (0.19-0.49) NG/ML TSH 3rd Generation (0.46-4.68) mIU/L Urine Color (YELLOW) Urine Clarity (Clear) Urine pH (5.0-8.0) Ur Specific [place] (1.003-1.030) Urine Protein (NEGATIVE) mg/dL Urine Glucose (UA) (Normal) mg/dL Urine Ketones (NEGATIVE) mg/dL Urine Blood (NEGATIVE) Urine Nitrate (NEGATIVE) Urine Bilirubin (NEGATIVE) Urine Urobilinogen (0.2-1.0) mg/dL Ur Leukocyte Esterase (Negative) Sonia/uL Urine WBC (Auto) (0-5) /hpf Urine RBC (Auto) (0-3) /hpf 11/06/16 11/06/16 11/06/16 Range/Units 08:54 06:04 05:48 WBC 13.2 H (4.8-10.8) K/uL RBC 5.14 (4.40-5.90) Mil/uL Hgb 15.3 (12.0-18.0) g/dL Hct 45.8 (35.0-51.0) % MCV 89.2 (80.0-94.0) fL MCH 29.7 (27.0-31.0) pg MCHC 33.3 (33.0-37.0) g/dL RDW 12.1 (11.5-14.5) % Plt Count 168 (130-400) K/uL MPV 10.5 (7.2-11.7) fL Neut % (Auto) 61.1 (50.0-75.0) % Lymph % (Auto) 25.1 (20.0-40.0) % Wirt % (Auto) 13.1 H (0.0-10.0) % Eos % (Auto) 0.1 (0.0-4.0) % Baso % (Auto) 0.6 (0.0-2.0) % Neut # 8.1 H (1.8-7.0) K/uL Lymph # 3.3 (1.0-4.3) K/uL Wirt # 1.7 H (0.0-0.8) K/uL Eos # 0.0 (0.0-0.7) K/uL Baso # 0.1 (0.0-0.2) K/uL Sodium (132-148) mmol/L Potassium (3.6-5.2) mmol/L Chloride (98-107) mmol/L Carbon Dioxide (22-30) mmol/L Anion Gap (10-20) BUN (9-20) mg/dL Creatinine (0.8-1.5) MG/DL Est GFR ( Amer) Est GFR (Non-Af Amer) POC Glucose (mg/dL) 275 H (65-110) mg/dL Random Glucose (75-110) mg/dL Hemoglobin A1c (4.2-6.5) % Calcium (8.6-10.4) mg/dl Phosphorus (2.5-4.5) mg/dL Magnesium (1.6-2.3) mg/dL Total Bilirubin (0.2-1.3) mg/dL AST (17-59) U/L ALT (21-72) U/L Alkaline Phosphatase (38-126) U/L Total Creatine Kinase (55-170) U/L CK-MB (Mass) (0.0-3.38) ng/mL Troponin I, Quant (0.00-0.120) ng/mL Total Protein (6.3-8.3) g/dL Albumin (3.5-5.0) g/dL Globulin (2.2-3.9) gm/dL Albumin/Globulin Ratio (1.0-2.1) Triglycerides (0-149) mg/dL Cholesterol (0-199) mg/dL LDL Cholesterol Direct (0-129) mg/dL HDL Cholesterol (30-70) mg/dL Amylase (30-110) U/L Lipase (23-300) U/L Procalcitonin (0.19-0.49) NG/ML TSH 3rd Generation (0.46-4.68) mIU/L Urine Color Yellow (YELLOW) Urine Clarity Clear (Clear) Urine pH 6.0 (5.0-8.0) Ur Specific [place] 1.036 H (1.003-1.030) Urine Protein 2+ H (NEGATIVE) mg/dL Urine Glucose (UA) 3+ H (Normal) mg/dL Urine Ketones 1+ H (NEGATIVE) mg/dL Urine Blood Negative (NEGATIVE) Urine Nitrate Negative (NEGATIVE) Urine Bilirubin Negative (NEGATIVE) Urine Urobilinogen Normal (0.2-1.0) mg/dL Ur Leukocyte Esterase Neg (Negative) Sonia/uL Urine WBC (Auto) < 1 (0-5) /hpf Urine RBC (Auto) 9 H (0-3) /hpf 11/06/16 11/06/16 11/06/16 Range/Units 05:48 04:04 04:04 WBC (4.8-10.8) K/uL RBC (4.40-5.90) Mil/uL Hgb (12.0-18.0) g/dL Hct (35.0-51.0) % MCV (80.0-94.0) fL MCH (27.0-31.0) pg MCHC (33.0-37.0) g/dL RDW (11.5-14.5) % Plt Count (130-400) K/uL MPV (7.2-11.7) fL Neut % (Auto) (50.0-75.0) % Lymph % (Auto) (20.0-40.0) % Wirt % (Auto) (0.0-10.0) % Eos % (Auto) (0.0-4.0) % Baso % (Auto) (0.0-2.0) % Neut # (1.8-7.0) K/uL Lymph # (1.0-4.3) K/uL Wirt # (0.0-0.8) K/uL Eos # (0.0-0.7) K/uL Baso # (0.0-0.2) K/uL Sodium 139 (132-148) mmol/L Potassium 3.8 (3.6-5.2) mmol/L Chloride 98 (98-107) mmol/L Carbon Dioxide 22 (22-30) mmol/L Anion Gap 23 H (10-20) BUN 12 (9-20) mg/dL Creatinine 0.6 L (0.8-1.5) MG/DL Est GFR ( Amer) > 60 Est GFR (Non-Af Amer) > 60 POC Glucose (mg/dL) (65-110) mg/dL Random Glucose 233 H (75-110) mg/dL Hemoglobin A1c 11.4 H (4.2-6.5) % Calcium 8.9 (8.6-10.4) mg/dl Phosphorus 3.2 (2.5-4.5) mg/dL Magnesium 1.7 (1.6-2.3) mg/dL Total Bilirubin 1.2 (0.2-1.3) mg/dL AST 62 H (17-59) U/L ALT 47 (21-72) U/L Alkaline Phosphatase 82 (38-126) U/L Total Creatine Kinase (55-170) U/L CK-MB (Mass) (0.0-3.38) ng/mL Troponin I, Quant (0.00-0.120) ng/mL Total Protein 7.3 (6.3-8.3) g/dL Albumin 3.8 (3.5-5.0) g/dL Globulin 3.5 (2.2-3.9) gm/dL Albumin/Globulin Ratio 1.1 (1.0-2.1) Triglycerides (0-149) mg/dL Cholesterol (0-199) mg/dL LDL Cholesterol Direct (0-129) mg/dL HDL Cholesterol (30-70) mg/dL Amylase (30-110) U/L Lipase (23-300) U/L Procalcitonin (0.19-0.49) NG/ML TSH 3rd Generation 0.32 L (0.46-4.68) mIU/L Urine Color (YELLOW) Urine Clarity (Clear) Urine pH (5.0-8.0) Ur Specific [place] (1.003-1.030) Urine Protein (NEGATIVE) mg/dL Urine Glucose (UA) (Normal) mg/dL Urine Ketones (NEGATIVE) mg/dL Urine Blood (NEGATIVE) Urine Nitrate (NEGATIVE) Urine Bilirubin (NEGATIVE) Urine Urobilinogen (0.2-1.0) mg/dL Ur Leukocyte Esterase (Negative) Sonia/uL Urine WBC (Auto) (0-5) /hpf Urine RBC (Auto) (0-3) /hpf 11/06/16 11/05/16 11/05/16 Range/Units 04:04 21:24 21:24 WBC (4.8-10.8) K/uL RBC (4.40-5.90) Mil/uL Hgb (12.0-18.0) g/dL Hct (35.0-51.0) % MCV (80.0-94.0) fL MCH (27.0-31.0) pg MCHC (33.0-37.0) g/dL RDW (11.5-14.5) % Plt Count (130-400) K/uL MPV (7.2-11.7) fL Neut % (Auto) (50.0-75.0) % Lymph % (Auto) (20.0-40.0) % Wirt % (Auto) (0.0-10.0) % Eos % (Auto) (0.0-4.0) % Baso % (Auto) (0.0-2.0) % Neut # (1.8-7.0) K/uL Lymph # (1.0-4.3) K/uL Wirt # (0.0-0.8) K/uL Eos # (0.0-0.7) K/uL Baso # (0.0-0.2) K/uL Sodium (132-148) mmol/L Potassium (3.6-5.2) mmol/L Chloride (98-107) mmol/L Carbon Dioxide (22-30) mmol/L Anion Gap (10-20) BUN (9-20) mg/dL Creatinine (0.8-1.5) MG/DL Est GFR ( Amer) Est GFR (Non-Af Amer) POC Glucose (mg/dL) (65-110) mg/dL Random Glucose (75-110) mg/dL Hemoglobin A1c (4.2-6.5) % Calcium (8.6-10.4) mg/dl Phosphorus (2.5-4.5) mg/dL Magnesium (1.6-2.3) mg/dL Total Bilirubin (0.2-1.3) mg/dL AST (17-59) U/L ALT (21-72) U/L Alkaline Phosphatase (38-126) U/L Total Creatine Kinase 416 H 386 H (55-170) U/L CK-MB (Mass) 8.72 H 10.8 H (0.0-3.38) ng/mL Troponin I, Quant 8.6600 H* 10.0000 H* (0.00-0.120) ng/mL Total Protein (6.3-8.3) g/dL Albumin (3.5-5.0) g/dL Globulin (2.2-3.9) gm/dL Albumin/Globulin Ratio (1.0-2.1) Triglycerides 143 (0-149) mg/dL Cholesterol 216 H (0-199) mg/dL LDL Cholesterol Direct 171 H (0-129) mg/dL HDL Cholesterol 40 (30-70) mg/dL Amylase 61 (30-110) U/L Lipase 58 (23-300) U/L Procalcitonin (0.19-0.49) NG/ML TSH 3rd Generation (0.46-4.68) mIU/L Urine Color (YELLOW) Urine Clarity (Clear) Urine pH (5.0-8.0) Ur Specific [place] (1.003-1.030) Urine Protein (NEGATIVE) mg/dL Urine Glucose (UA) (Normal) mg/dL Urine Ketones (NEGATIVE) mg/dL Urine Blood (NEGATIVE) Urine Nitrate (NEGATIVE) Urine Bilirubin (NEGATIVE) Urine Urobilinogen (0.2-1.0) mg/dL Ur Leukocyte Esterase (Negative) Sonia/uL Urine WBC (Auto) (0-5) /hpf Urine RBC (Auto) (0-3) /hpf 11/05/16 Range/Units 21:10 WBC (4.8-10.8) K/uL RBC (4.40-5.90) Mil/uL Hgb (12.0-18.0) g/dL Hct (35.0-51.0) % MCV (80.0-94.0) fL MCH (27.0-31.0) pg MCHC (33.0-37.0) g/dL RDW (11.5-14.5) % Plt Count (130-400) K/uL MPV (7.2-11.7) fL Neut % (Auto) (50.0-75.0) % Lymph % (Auto) (20.0-40.0) % Wirt % (Auto) (0.0-10.0) % Eos % (Auto) (0.0-4.0) % Baso % (Auto) (0.0-2.0) % Neut # (1.8-7.0) K/uL Lymph # (1.0-4.3) K/uL Wirt # (0.0-0.8) K/uL Eos # (0.0-0.7) K/uL Baso # (0.0-0.2) K/uL Sodium (132-148) mmol/L Potassium (3.6-5.2) mmol/L Chloride (98-107) mmol/L Carbon Dioxide (22-30) mmol/L Anion Gap (10-20) BUN (9-20) mg/dL Creatinine (0.8-1.5) MG/DL Est GFR ( Amer) Est GFR (Non-Af Amer) POC Glucose (mg/dL) 214 H (65-110) mg/dL Random Glucose (75-110) mg/dL Hemoglobin A1c (4.2-6.5) % Calcium (8.6-10.4) mg/dl Phosphorus (2.5-4.5) mg/dL Magnesium (1.6-2.3) mg/dL Total Bilirubin (0.2-1.3) mg/dL AST (17-59) U/L ALT (21-72) U/L Alkaline Phosphatase (38-126) U/L Total Creatine Kinase (55-170) U/L CK-MB (Mass) (0.0-3.38) ng/mL Troponin I, Quant (0.00-0.120) ng/mL Total Protein (6.3-8.3) g/dL Albumin (3.5-5.0) g/dL Globulin (2.2-3.9) gm/dL Albumin/Globulin Ratio (1.0-2.1) Triglycerides (0-149) mg/dL Cholesterol (0-199) mg/dL LDL Cholesterol Direct (0-129) mg/dL HDL Cholesterol (30-70) mg/dL Amylase (30-110) U/L Lipase (23-300) U/L Procalcitonin (0.19-0.49) NG/ML TSH 3rd Generation (0.46-4.68) mIU/L Urine Color (YELLOW) Urine Clarity (Clear) Urine pH (5.0-8.0) Ur Specific [place] (1.003-1.030) Urine Protein (NEGATIVE) mg/dL Urine Glucose (UA) (Normal) mg/dL Urine Ketones (NEGATIVE) mg/dL Urine Blood (NEGATIVE) Urine Nitrate (NEGATIVE) Urine Bilirubin (NEGATIVE) Urine Urobilinogen (0.2-1.0) mg/dL Ur Leukocyte Esterase (Negative) Sonia/uL Urine WBC (Auto) (0-5) /hpf Urine RBC (Auto) (0-3) /hpf Laboratory Results - last 24 hr 11/05/16 11/05/16 11/05/16 21:10 21:24 21:24 WBC RBC Hgb Hct MCV MCH MCHC RDW Plt Count MPV Neut % (Auto) Lymph % (Auto) Wirt % (Auto) Eos % (Auto) Baso % (Auto) Neut # Lymph # Wirt # Eos # Baso # Sodium Potassium Chloride Carbon Dioxide Anion Gap BUN Creatinine Est GFR ( Amer) Est GFR (Non-Af Amer) POC Glucose (mg/dL) 214 H Random Glucose Hemoglobin A1c Calcium Phosphorus Magnesium Total Bilirubin AST ALT Alkaline Phosphatase Total Creatine Kinase 386 H CK-MB (Mass) 10.8 H Troponin I, Quant 10.0000 H* Total Protein Albumin Globulin Albumin/Globulin Ratio Triglycerides Cholesterol LDL Cholesterol Direct HDL Cholesterol Amylase 61 Lipase 58 Procalcitonin TSH 3rd Generation Urine Color Urine Clarity Urine pH Ur Specific [place] Urine Protein Urine Glucose (UA) Urine Ketones Urine Blood Urine Nitrate Urine Bilirubin Urine Urobilinogen Ur Leukocyte Esterase Urine WBC (Auto) Urine RBC (Auto) 11/06/16 11/06/16 11/06/16 04:04 04:04 04:04 WBC RBC Hgb Hct MCV MCH MCHC RDW Plt Count MPV Neut % (Auto) Lymph % (Auto) Wirt % (Auto) Eos % (Auto) Baso % (Auto) Neut # Lymph # Wirt # Eos # Baso # Sodium Potassium Chloride Carbon Dioxide Anion Gap BUN Creatinine Est GFR ( Amer) Est GFR (Non-Af Amer) POC Glucose (mg/dL) Random Glucose Hemoglobin A1c 11.4 H Calcium Phosphorus Magnesium Total Bilirubin AST ALT Alkaline Phosphatase Total Creatine Kinase 416 H CK-MB (Mass) 8.72 H Troponin I, Quant 8.6600 H* Total Protein Albumin Globulin Albumin/Globulin Ratio Triglycerides 143 Cholesterol 216 H LDL Cholesterol Direct 171 H HDL Cholesterol 40 Amylase Lipase Procalcitonin TSH 3rd Generation 0.32 L Urine Color Urine Clarity Urine pH Ur Specific [place] Urine Protein Urine Glucose (UA) Urine Ketones Urine Blood Urine Nitrate Urine Bilirubin Urine Urobilinogen Ur Leukocyte Esterase Urine WBC (Auto) Urine RBC (Auto) 11/06/16 11/06/16 11/06/16 05:48 05:48 06:04 WBC 13.2 H RBC 5.14 Hgb 15.3 Hct 45.8 MCV 89.2 MCH 29.7 MCHC 33.3 RDW 12.1 Plt Count 168 MPV 10.5 Neut % (Auto) 61.1 Lymph % (Auto) 25.1 Wirt % (Auto) 13.1 H Eos % (Auto) 0.1 Baso % (Auto) 0.6 Neut # 8.1 H Lymph # 3.3 Wirt # 1.7 H Eos # 0.0 Baso # 0.1 Sodium 139 Potassium 3.8 Chloride 98 Carbon Dioxide 22 Anion Gap 23 H BUN 12 Creatinine 0.6 L Est GFR ( Amer) > 60 Est GFR (Non-Af Amer) > 60 POC Glucose (mg/dL) Random Glucose 233 H Hemoglobin A1c Calcium 8.9 Phosphorus 3.2 Magnesium 1.7 Total Bilirubin 1.2 AST 62 H ALT 47 Alkaline Phosphatase 82 Total Creatine Kinase CK-MB (Mass) Troponin I, Quant Total Protein 7.3 Albumin 3.8 Globulin 3.5 Albumin/Globulin Ratio 1.1 Triglycerides Cholesterol LDL Cholesterol Direct HDL Cholesterol Amylase Lipase Procalcitonin TSH 3rd Generation Urine Color Yellow Urine Clarity Clear Urine pH 6.0 Ur Specific [place] 1.036 H Urine Protein 2+ H Urine Glucose (UA) 3+ H Urine Ketones 1+ H Urine Blood Negative Urine Nitrate Negative Urine Bilirubin Negative Urine Urobilinogen Normal Ur Leukocyte Esterase Neg Urine WBC (Auto) < 1 Urine RBC (Auto) 9 H 11/06/16 11/06/16 11/06/16 08:54 09:31 11:24 WBC RBC Hgb Hct MCV MCH MCHC RDW Plt Count MPV Neut % (Auto) Lymph % (Auto) Wirt % (Auto) Eos % (Auto) Baso % (Auto) Neut # Lymph # Wirt # Eos # Baso # Sodium Potassium Chloride Carbon Dioxide Anion Gap BUN Creatinine Est GFR ( Amer) Est GFR (Non-Af Amer) POC Glucose (mg/dL) 275 H 216 H Random Glucose Hemoglobin A1c Calcium Phosphorus Magnesium Total Bilirubin AST ALT Alkaline Phosphatase Total Creatine Kinase CK-MB (Mass) Troponin I, Quant Total Protein Albumin Globulin Albumin/Globulin Ratio Triglycerides Cholesterol LDL Cholesterol Direct HDL Cholesterol Amylase Lipase Procalcitonin 0.06 L TSH 3rd Generation Urine Color Urine Clarity Urine pH Ur Specific [place] Urine Protein Urine Glucose (UA) Urine Ketones Urine Blood Urine Nitrate Urine Bilirubin Urine Urobilinogen Ur Leukocyte Esterase Urine WBC (Auto) Urine RBC (Auto) 11/06/16 16:06 WBC RBC Hgb Hct MCV MCH MCHC RDW Plt Count MPV Neut % (Auto) Lymph % (Auto) Wirt % (Auto) Eos % (Auto) Baso % (Auto) Neut # Lymph # Wirt # Eos # Baso # Sodium Potassium Chloride Carbon Dioxide Anion Gap BUN Creatinine Est GFR ( Amer) Est GFR (Non-Af Amer) POC Glucose (mg/dL) 241 H Random Glucose Hemoglobin A1c Calcium Phosphorus Magnesium Total Bilirubin AST ALT Alkaline Phosphatase Total Creatine Kinase CK-MB (Mass) Troponin I, Quant Total Protein Albumin Globulin Albumin/Globulin Ratio Triglycerides Cholesterol LDL Cholesterol Direct HDL Cholesterol Amylase Lipase Procalcitonin TSH 3rd Generation Urine Color Urine Clarity Urine pH Ur Specific [place] Urine Protein Urine Glucose (UA) Urine Ketones Urine Blood Urine Nitrate Urine Bilirubin Urine Urobilinogen Ur Leukocyte Esterase Urine WBC (Auto) Urine RBC (Auto) EKG/Cardiology Studies: Cardiology / EKG Studies 11/05/16 21:30 EKG [ELECTROCARDIOGRAM] Timed Comment: Mode Of Transportation: Reason For Exam: chest pain 11/06/16 03:30 EKG [ELECTROCARDIOGRAM] Timed Comment: Mode Of Transportation: Reason For Exam: chest pain; elevated trop Critical Care Progress Note - Nutrition Nutrition: Nutrition Category Date Time Status Heart Healthy Diet [DIET] Diets 11/06/16 Lunch Active NPO Diet [DIET] Diets 11/07/16 Breakfast Active Attending/Attestation - Attestation I have personally seen and examined this patient.: Yes I have fully participated in the care of the patient.: Yes I have reviewed all pertinent clinical information: Yes Notes (Text): 11/06/16 17:50 Patient seen and examined in the intensive care unit. Case discussed with house staff in the morning rounds. Status post cardiac cath with 99% LAD occlusion. For PCI tomorrow Patient started on IV antibiotics for fever of unknown SOURCE, though patient complaining of cough but no infiltrate on chest x-ray Follow-up culture and sensitivity
[2016-11-06] MEDS: (Novolin R) Insulin Human Regular 100 units/ml vial SC SCH ×4 (08:14→21:44)
[2016-11-06 08:23] LABS: RBC URINE 9 /hpf (0-3); URINE BILIRUBIN NEGATIVE (NEGATIVE); URINE BLOOD NEGATIVE (NEGATIVE); URINE COLOR Yellow (YELLOW); URINE GLUCOSE (UA) 3+ mg/dL (Normal); URINE KETONE 1+ mg/dL (NEGATIVE); URINE LEUKOCYTE ESTERASE NEG Leu/uL (Negative); URINE PROTEIN 2+ mg/dL (NEGATIVE); URINE UROBILINOGEN NORMAL mg/dL (0.2-1.0); WBC URINE < 1 /hpf (0-5)
[2016-11-06] MEDS: Sodium Chloride 0.9% 1,000 ML IV SCH ×2 (09:14→23:56)
[2016-11-06] MEDS: Piperacillin/Tazobact 3.375 GM in Sodium Chloride 100 ML IVPB SCH ×3 (09:14→23:56)
[2016-11-06] MEDS ORDERED: Iohexol 350mg/ml 100 ML ONE (09:48)
[2016-11-06] MEDS ORDERED: Midazolam 2 MG/2 ML VIAL ONE (09:48)
[2016-11-06] MEDS ORDERED: Nitroglycerin 50mg in D5W 50 MG/250 ML BOTTLE IV ONE (09:49)
[2016-11-06] MEDS ORDERED: Heparin25000 units/250ml 1/2NS 25,000 UNITS/250 ML BAG IV PRN ×3 (10:30→19:00)
--- NOTE | 2016-11-06 11:46 | US ---
HISTORY: abdominal pain; alcohol use COMPARISON: None. TECHNIQUE: Grayscale imaging was performed. FINDINGS: LIVER: Measures 19.2 cm. There is diffuse increased echogenicity of the liver parenchyma. No mass. No intrahepatic bile duct dilatation. GALLBLADDER: No gallstones, wall thickening or pericholecystic fluid. COMMON BILE DUCT: Measures 7.8 mm. No stones. No dilatation. PANCREAS: Unremarkable as visualized. No mass. No ductal dilatation. RIGHT KIDNEY: Measures 12.6cm. Normal echogenicity. No calculus, mass, or hydronephrosis. LEFT KIDNEY: Measures 12.9cm. Normal echogenicity. No calculus, mass, or hydronephrosis. There is a 2.3 x 1.3 x 2.1 cm parapelvic cyst in the upper pole. SPLEEN: Normal in size and contour. No mass. AORTA: No aneurysmal dilatation. IVC: Unremarkable. OTHER FINDINGS: None. IMPRESSION: Mild hepatomegaly. Diffuse increased echogenicity in the liver may reflect hepatic steatosis however parenchymal infectious/ inflammatory etiologies cannot be entirely excluded. Clinical and laboratory correlation is advised.
--- NOTE | 2016-11-06 15:04 | CP.PCM.PN ---
Subjective - Date & Time of Evaluation Date of Evaluation: 11/06/16 Time of Evaluation: 15:00 - Subjective Subjective: Medical Attending Note Patient seen and examined s/p cardiac catherization. Patient reports mild headache, denies chest pain, denies palpitations, denies shortness of breathe, denies abdominal pain, denies nausea, denies vomitting, denies low back pain, denies neuropathy. Discussed with cardiology, regarding finding of 99% occlusion of LAD found on catherization today. Patient is aware of this finding. Patient is visibly upset but encourage to express himself given his apparent worry. Patient encouraged to speak and talk and encouraged if he wants further support to let us know. Patient reports he is concern for his and , 7 month son; encourage seek support and offer pastoral care if he wants as well. Objective - Vital Signs/Intake and Output Vital Signs (last 24 hours): Temp Pulse Resp BP Pulse Ox 98.9 F 88 24 124/80 99 11/06/16 12:00 11/06/16 14:20 11/06/16 14:20 11/06/16 14:20 11/06/16 14:20 Intake and Output: 11/06/16 11/06/16 06:59 18:59 Intake Total 865.5 992.2 Output Total 700 Balance 165.5 992.2 - Medications Medications: Current Medications Aspirin (Ecotrin) 81 mg PO DAILY [facility] Last Admin: 11/06/16 11:05 Dose: 81 mg Carvedilol (Coreg) 3.125 mg PO Q12 [facility] Last Admin: 11/06/16 11:05 Dose: 3.125 mg Clopidogrel Bisulfate (Plavix) 75 mg PO DAILY [facility] Last Admin: 11/06/16 11:05 Dose: 75 mg Famotidine (Pepcid) 20 mg PO BID [facility] Last Admin: 11/06/16 11:05 Dose: 20 mg Sodium Chloride (Sodium Chloride 0.9%) 1,000 mls @ 70 mls/hr IV .[id number] [facility] Stop: 11/06/16 18:16 Last Admin: 11/06/16 09:14 Dose: 70 mls/hr Nitroglycerin/Dextrose (Nitroglycerin 50 Mg/250 Ml D5w) 50 mg in 250 mls @ 1.5 mls/hr IV .Q24H [facility]; 5 MCG/MIN PRN Reason: Protocol Last Titration: 11/06/16 00:00 Dose: 10 mcg/min, 3 mls/hr Piperacillin Sod/Tazobactam (Sod 3.375 gm/ Sodium Chloride) 100 mls @ 200 mls/ hr IVPB Q8H [facility] Last Admin: 11/06/16 09:14 Dose: 200 mls/hr Heparin Sodium/Sodium Chloride (Heparin 81667 Units/250ml 1/2 Normal Saline) 25 ,000 units in 250 mls @ 8.118 mls/hr IV .Q24H PRN; Protocol; 9.16 UNITS/KG/HR PRN Reason: PROTOCOL Last Admin: 11/06/16 11:54 Dose: 9.16 units/kg/hr, 8.118 mls/hr Heparin Sodium/Sodium Chloride (Heparin 40540 Units/250ml 1/2 Normal Saline) 25 ,000 units in 250 mls @ 8.862 mls/hr IV .Q24H PRN; Protocol; 10 UNITS/KG/HR PRN Reason: ADJUST RATE PER PROTOCOL Stop: 11/07/16 08:00 Insulin Human Regular (Novolin R) 0 unit SC ACHS TEN PRN Reason: Protocol Last Admin: 11/06/16 11:56 Dose: 2 unit Losartan Potassium (Cozaar) 25 mg PO DAILY [facility] Last Admin: 11/06/16 11:05 Dose: 25 mg Rosuvastatin Calcium (Crestor) 40 mg PO HS [facility] Last Admin: 11/05/16 22:00 Dose: 40 mg - Labs Labs: 11/06/16 05:48 11/06/16 05:48 PT 12.2 SECONDS (9.7-12.2) 11/05/16 15:36 INR 1.1 11/05/16 15:36 APTT 30 SECONDS (21-34) 11/05/16 15:36 - Constitutional Appears: Non-toxic, No Acute Distress - Head Exam Head Exam: NORMAL INSPECTION Additional comments: right hand (in place in device) access point of radial for cath ealier today - Eye Exam Eye Exam: EOMI - ENT Exam ENT Exam: Mucous Membranes Moist - Respiratory Exam Respiratory Exam: Clear to Ausculation Bilateral, NORMAL BREATHING PATTERN. absent: Rales, Rhonchi, Wheezes - Cardiovascular Exam Cardiovascular Exam: REGULAR RHYTHM, +S1, +S2. absent: JVD - GI/Abdominal Exam GI & Abdominal Exam: Soft, Normal Bowel Sounds. absent: Distended, Firm, Guarding, Rigid, Tenderness, Rebound - Extremities Exam Extremities Exam: Normal Capillary Refill. absent: Pedal Edema, Tenderness - Back Exam Back Exam: absent: rash noted - Neurological Exam Neurological Exam: Alert, Awake, Oriented x3 - Psychiatric Exam Psychiatric exam: Normal Affect, Normal Mood - Skin Skin Exam: Dry, Intact, Normal Color, Warm Assessment and Plan - Assessment and Plan (Free Text) Assessment: Assessment/Plan (1) NSTEMI (non-ST elevated myocardial infarction) Coronary Artery Disease Assessment and Plan: * Patient admitted to ICU for Non-STEMI * MULUGETA score: 3 points -> 13% risk at 14 days of all cause mortality, new or recurrent AK or need for revascularization (3 CAD risk factors, chest pain, positive troponin) * Cardiology (Dr. Carrillo) on the case-->help appreciated; discussed case with Dr. Carrillo at length * In the ED, patient received dose of Aspirin 325mg, loading dose of Plavix 300mg PO X1, and therapeutic dose of Lovenox on admission. * Patient underwent cardiac cath today: 99% LAD-->going to [place] tomorrow for PCI on 11/07/16 * currently on Heparin drip * Aspirin 81mg PO daily * Plavix 75mg PO daily * Coreg 3.125mg PO BID (hold SBP<100 and HR<60), * Losartan 25mg PO daily (Hold SBP<100) * Pepcid 20mg PO bid * NS 75 cc/hr for 24 hours * PCI scheduled with Dr Carrillo tomorrow at [place] on 11/07; emtla is filled by cardiology for tomorrow * Order for Echo: completed awaiting report * Troponin: 4.94-->10.000-->8.66 Status: Acute (2) HTN (hypertension) Assessment and Plan: * Coreg 3.125mg PO BID (hold SBP<100 and HR<60) * Given: losartan 25mg po daily * Off Tridil drip Status: Chronic (3) HLD (hyperlipidemia) Assessment and Plan: * Triglycerides 151, Cholesterol 258, LDL 207, HDL 47 (patient ate sandwich today) * rosuvastatin 40mg po hs * [employer] referral * Advocated for life-style/exercise modifications at bedside Status: Chronic (4) Diabetes mellitus, new onset Assessment and Plan: * Random glucose 292 in ED * HgA1C:11.4 * T, cholestrol: 216, LDL:171, HDL: 40 * accuchecks achs * low dose insulin sliding * [employer] referral; Diabetic nurse education referral * Discussed with patient extensively regarding diet and exercise modifications and will need regimen after patient completes therapuetic cath tomorrow at * Lisinopril 2.5mg PO daily * Crestor 40mg POqHS * Extensive diet/exercise modifications discussed with the patient Status: Acute (5) Abdominal pain Assessment and Plan: * Resolved * amylase: 61 * lipase: 58 * abdominal ultrasound (11/06): mild hepatomegaly. Diffuse increased echogenicity in the liver may reflect hepatic steatosis, however parenchymal infectious/inflammatory etiologies cannot be entirely excluded Status: Resolved (6) Elevated WBC count Assessment and Plan: * Downtrending * UA positive for protein (3+), glucose (2+), ketone (1+), and RBC (4) * blood culture, F/U * urine culture, F/U * MRSA screen, F/U * repeat urinalysis, * chest xray (11/05/16): no active disease * procalcitonin: 0.06 Status: Acute (7) Alcohol Use Assessment and Plan: * Patient is not active withdrawal * No tremors. advised to curb alcohol use Status: Chronic (8) Tobacco abuse; Tobacco cessation Assessment and Plan: * Patient is off smoking for one week on his own prior to hospitalization; patient offered patch to help curb; will think about it Status: Chronic (9) Prophylactic measure Assessment and Plan: * GI: famotidine 20mg po bid * Heparin drip * NS 70cc/hr for 24 hours Status: Acute
[2016-11-06 18:09] LABS: INR 1.1
--- NOTE | 2016-11-06 18:22 | CP.PCM.CON ---
History of Present Illness - History of Present Illness History of Present Illness: 41 year old Male presents to the ED today complaining of mid-sternal chest pain and left arm weakness. Patient states that last night around midnight he was awoken with mid-sternal chest pain rating it a 8/10 which kept him up all night , he denied diaphoresis. He stated he also had lumbar pain and diffuse abdominal pain for the previous two days which had resolved prior to the onset of chest pain. He denied any remitting or exacerbating factors. He states the chest pain resolved as he and his were driving to the hospital today. He endorses a headache but is otherwise currently asymptomatic. He denies dyspnea on exertion and states he is able to walk and climb stairs without issue. He denies shortness of breath, chest pain, blurry vision, fever, chills, diarrhea, vomiting, constipation, pain, cough, parasthesia or numbness. PMD: Dr Kesha Angel PMHx: HTN PSHx: denies Allergies: NKA Meds: denies Social Hx: 1/2 ppd smoker for past 20 years; drinks 2-3 drinks of etoh 3 times a week; unemployed; lives with his and child at home Fam Hx: Mother with HTN, DM; Father from kidney failure Review of Systems - Review of Systems All systems: reviewed and no additional remarkable complaints except - Constitutional Constitutional: As Per HPI Past Patient History - Past Social History Smoking Status: Heavy Smoker > 10 Cigarettes Daily - CARDIAC Hx Hypertension: Yes (?) - MUSCULOSKELETAL/RHEUMATOLOGICAL Hx Falls: No - PSYCHIATRIC Hx Substance Use: No - SURGICAL HISTORY Hx Surgeries: No - ANESTHESIA Hx Anesthesia: No Meds Allergies/Adverse Reactions: Allergies Allergy/AdvReac Type Severity Reaction Status Date / Time No Known Allergies Allergy Unverified 11/05/16 14:35 - Medications Medications: Current Medications Aspirin (Ecotrin) 81 mg PO DAILY [facility] Last Admin: 11/06/16 11:05 Dose: 81 mg Carvedilol (Coreg) 3.125 mg PO Q12 [facility] Last Admin: 11/06/16 11:05 Dose: 3.125 mg Clopidogrel Bisulfate (Plavix) 75 mg PO DAILY [facility] Last Admin: 11/06/16 11:05 Dose: 75 mg Famotidine (Pepcid) 20 mg PO BID [facility] Last Admin: 11/06/16 17:34 Dose: 20 mg Sodium Chloride (Sodium Chloride 0.9%) 1,000 mls @ 70 mls/hr IV .[id number] TEN Stop: 11/07/16 10:16 Last Admin: 11/06/16 09:14 Dose: 70 mls/hr Nitroglycerin/Dextrose (Nitroglycerin 50 Mg/250 Ml D5w) 50 mg in 250 mls @ 1.5 mls/hr IV .Q24H TEN; 5 MCG/MIN PRN Reason: Protocol Last Titration: 11/06/16 00:00 Dose: 10 mcg/min, 3 mls/hr Piperacillin Sod/Tazobactam (Sod 3.375 gm/ Sodium Chloride) 100 mls @ 200 mls/ hr IVPB Q8H TEN Last Admin: 11/06/16 17:00 Dose: 200 mls/hr Heparin Sodium/Sodium Chloride (Heparin 81396 Units/250ml 1/2 Normal Saline) 25 ,000 units in 250 mls @ 8.118 mls/hr IV .Q24H PRN; Protocol; 9.16 UNITS/KG/HR PRN Reason: PROTOCOL Last Admin: 11/06/16 11:54 Dose: 9.16 units/kg/hr, 8.118 mls/hr Heparin Sodium/Sodium Chloride (Heparin 29056 Units/250ml 1/2 Normal Saline) 25 ,000 units in 250 mls @ 8.862 mls/hr IV .Q24H PRN; Protocol; 10 UNITS/KG/HR PRN Reason: ADJUST RATE PER PROTOCOL Stop: 11/07/16 08:00 Insulin Human Regular (Novolin R) 0 unit SC ACHS TEN PRN Reason: Protocol Last Admin: 11/06/16 17:34 Dose: 2 unit Losartan Potassium (Cozaar) 25 mg PO DAILY [facility] Last Admin: 11/06/16 11:05 Dose: 25 mg Rosuvastatin Calcium (Crestor) 40 mg PO HS [facility] Last Admin: 11/05/16 22:00 Dose: 40 mg Physical Exam - Constitutional Appears: Non-toxic, Chronically Ill - Head Exam Head Exam: NORMOCEPHALIC - Eye Exam Eye Exam: PERRL. absent: Scleral icterus - ENT Exam ENT Exam: Mucous Membranes Dry - Neck Exam Neck exam: Negative for: Lymphadenopathy - Respiratory Exam Respiratory Exam: Decreased Breath Sounds - Cardiovascular Exam Cardiovascular Exam: REGULAR RHYTHM - GI/Abdominal Exam GI & Abdominal Exam: Diminished Bowel Sounds, Soft - Rectal Exam Rectal Exam: Deferred - Exam Exam: NORMAL INSPECTION - Extremities Exam Extremities exam: Negative for: pedal edema - Back Exam Back exam: absent: CVA tenderness (L), CVA tenderness (R) - Neurological Exam Neurological exam: Alert, CN II-XII Intact, Oriented x3, Reflexes Normal - Psychiatric Exam Psychiatric exam: Normal Mood - Skin Skin Exam: Dry Results - Vital Signs Recent Vital Signs: Last Vital Signs Temp 101.1 F H 11/06/16 16:06 Pulse 88 11/06/16 18:05 Resp 20 11/06/16 18:05 BP 126/87 11/06/16 18:05 Pulse Ox 91 L 11/06/16 18:05 - Labs Result Diagrams: 11/06/16 05:48 11/06/16 05:48 Labs: Laboratory Results - last 24 hr 11/05/16 11/05/16 11/05/16 21:10 21:24 21:24 WBC RBC Hgb Hct MCV MCH MCHC RDW Plt Count MPV Neut % (Auto) Lymph % (Auto) Potter % (Auto) Eos % (Auto) Baso % (Auto) Neut # Lymph # Potter # Eos # Baso # PT INR APTT Sodium Potassium Chloride Carbon Dioxide Anion Gap BUN Creatinine Est GFR ( Amer) Est GFR (Non-Af Amer) POC Glucose (mg/dL) 214 H Random Glucose Hemoglobin A1c Calcium Phosphorus Magnesium Total Bilirubin AST ALT Alkaline Phosphatase Total Creatine Kinase 386 H CK-MB (Mass) 10.8 H Troponin I, Quant 10.0000 H* Total Protein Albumin Globulin Albumin/Globulin Ratio Triglycerides Cholesterol LDL Cholesterol Direct HDL Cholesterol Amylase 61 Lipase 58 Procalcitonin TSH 3rd Generation Urine Color Urine Clarity Urine pH Ur Specific [place] Urine Protein Urine Glucose (UA) Urine Ketones Urine Blood Urine Nitrate Urine Bilirubin Urine Urobilinogen Ur Leukocyte Esterase Urine WBC (Auto) Urine RBC (Auto) 11/06/16 11/06/16 11/06/16 04:04 04:04 04:04 WBC RBC Hgb Hct MCV MCH MCHC RDW Plt Count MPV Neut % (Auto) Lymph % (Auto) Potter % (Auto) Eos % (Auto) Baso % (Auto) Neut # Lymph # Potter # Eos # Baso # PT INR APTT Sodium Potassium Chloride Carbon Dioxide Anion Gap BUN Creatinine Est GFR ( Amer) Est GFR (Non-Af Amer) POC Glucose (mg/dL) Random Glucose Hemoglobin A1c 11.4 H Calcium Phosphorus Magnesium Total Bilirubin AST ALT Alkaline Phosphatase Total Creatine Kinase 416 H CK-MB (Mass) 8.72 H Troponin I, Quant 8.6600 H* Total Protein Albumin Globulin Albumin/Globulin Ratio Triglycerides 143 Cholesterol 216 H LDL Cholesterol Direct 171 H HDL Cholesterol 40 Amylase Lipase Procalcitonin TSH 3rd Generation 0.32 L Urine Color Urine Clarity Urine pH Ur Specific [place] Urine Protein Urine Glucose (UA) Urine Ketones Urine Blood Urine Nitrate Urine Bilirubin Urine Urobilinogen Ur Leukocyte Esterase Urine WBC (Auto) Urine RBC (Auto) 11/06/16 11/06/16 11/06/16 05:48 05:48 06:04 WBC 13.2 H RBC 5.14 Hgb 15.3 Hct 45.8 MCV 89.2 MCH 29.7 MCHC 33.3 RDW 12.1 Plt Count 168 MPV 10.5 Neut % (Auto) 61.1 Lymph % (Auto) 25.1 Potter % (Auto) 13.1 H Eos % (Auto) 0.1 Baso % (Auto) 0.6 Neut # 8.1 H Lymph # 3.3 Potter # 1.7 H Eos # 0.0 Baso # 0.1 PT INR APTT Sodium 139 Potassium 3.8 Chloride 98 Carbon Dioxide 22 Anion Gap 23 H BUN 12 Creatinine 0.6 L Est GFR ( Amer) > 60 Est GFR (Non-Af Amer) > 60 POC Glucose (mg/dL) Random Glucose 233 H Hemoglobin A1c Calcium 8.9 Phosphorus 3.2 Magnesium 1.7 Total Bilirubin 1.2 AST 62 H ALT 47 Alkaline Phosphatase 82 Total Creatine Kinase CK-MB (Mass) Troponin I, Quant Total Protein 7.3 Albumin 3.8 Globulin 3.5 Albumin/Globulin Ratio 1.1 Triglycerides Cholesterol LDL Cholesterol Direct HDL Cholesterol Amylase Lipase Procalcitonin TSH 3rd Generation Urine Color Yellow Urine Clarity Clear Urine pH 6.0 Ur Specific [place] 1.036 H Urine Protein 2+ H Urine Glucose (UA) 3+ H Urine Ketones 1+ H Urine Blood Negative Urine Nitrate Negative Urine Bilirubin Negative Urine Urobilinogen Normal Ur Leukocyte Esterase Neg Urine WBC (Auto) < 1 Urine RBC (Auto) 9 H 08/11/06/16 11/06/16 08:54 09:31 11:24 WBC RBC Hgb Hct MCV MCH MCHC RDW Plt Count MPV Neut % (Auto) Lymph % (Auto) Potter % (Auto) Eos % (Auto) Baso % (Auto) Neut # Lymph # Potter # Eos # Baso # PT INR APTT Sodium Potassium Chloride Carbon Dioxide Anion Gap BUN Creatinine Est GFR ( Amer) Est GFR (Non-Af Amer) POC Glucose (mg/dL) 275 H 216 H Random Glucose Hemoglobin A1c Calcium Phosphorus Magnesium Total Bilirubin AST ALT Alkaline Phosphatase Total Creatine Kinase CK-MB (Mass) Troponin I, Quant Total Protein Albumin Globulin Albumin/Globulin Ratio Triglycerides Cholesterol LDL Cholesterol Direct HDL Cholesterol Amylase Lipase Procalcitonin 0.06 L TSH 3rd Generation Urine Color Urine Clarity Urine pH Ur Specific [place] Urine Protein Urine Glucose (UA) Urine Ketones Urine Blood Urine Nitrate Urine Bilirubin Urine Urobilinogen Ur Leukocyte Esterase Urine WBC (Auto) Urine RBC (Auto) 11/06/16 11/06/16 16:06 17:47 WBC RBC Hgb Hct MCV MCH MCHC RDW Plt Count MPV Neut % (Auto) Lymph % (Auto) Potter % (Auto) Eos % (Auto) Baso % (Auto) Neut # Lymph # Potter # Eos # Baso # PT 12.2 INR 1.1 APTT 35 H D Sodium Potassium Chloride Carbon Dioxide Anion Gap BUN Creatinine Est GFR ( Amer) Est GFR (Non-Af Amer) POC Glucose (mg/dL) 241 H Random Glucose Hemoglobin A1c Calcium Phosphorus Magnesium Total Bilirubin AST ALT Alkaline Phosphatase Total Creatine Kinase CK-MB (Mass) Troponin I, Quant Total Protein Albumin Globulin Albumin/Globulin Ratio Triglycerides Cholesterol LDL Cholesterol Direct HDL Cholesterol Amylase Lipase Procalcitonin TSH 3rd Generation Urine Color Urine Clarity Urine pH Ur Specific [place] Urine Protein Urine Glucose (UA) Urine Ketones Urine Blood Urine Nitrate Urine Bilirubin Urine Urobilinogen Ur Leukocyte Esterase Urine WBC (Auto) Urine RBC (Auto) Assessment & Plan (1) Elevated WBC count Status: Acute (2) NSTEMI (non-ST elevated myocardial infarction) Status: Acute - Assessment and Plan (Free Text) Assessment: fever and leukocytosis likely secondary to recent mi await cultures
--- NOTE | 2016-11-06 19:34 | CP.PCM.PN ---
Subjective - Date & Time of Evaluation Date of Evaluation: 11/06/16 Time of Evaluation: 09:05 - Subjective Subjective: Non ST elevation VA Patient s/p Cath 1. L Main: Patent 2. LAD Mid 99% 3. L Cx: Patent 4. RCA: Dominant, Patent, Small PLV mid 99% 5. EF 40%, Anerior and apical hypokinesis Plan: PCI of LAD Objective - Vital Signs/Intake and Output Vital Signs (last 24 hours): Temp Pulse Resp BP Pulse Ox 101.1 F H 89 22 125/81 100 11/06/16 16:06 11/06/16 19:04 11/06/16 19:04 11/06/16 19:05 11/06/16 19:04 Intake and Output: 11/06/16 11/07/16 18:59 06:59 Intake Total 1466.6 181.1 Output Total 300 Balance 1166.6 181.1 - Medications Medications: Current Medications Aspirin (Ecotrin) 81 mg PO DAILY [facility] Last Admin: 11/06/16 11:05 Dose: 81 mg Carvedilol (Coreg) 3.125 mg PO Q12 [facility] Last Admin: 11/06/16 11:05 Dose: 3.125 mg Clopidogrel Bisulfate (Plavix) 75 mg PO DAILY [facility] Last Admin: 11/06/16 11:05 Dose: 75 mg Famotidine (Pepcid) 20 mg PO BID [facility] Last Admin: 11/06/16 17:34 Dose: 20 mg Sodium Chloride (Sodium Chloride 0.9%) 1,000 mls @ 70 mls/hr IV .[id number] [facility] Stop: 11/07/16 10:16 Last Admin: 11/06/16 09:14 Dose: 70 mls/hr Nitroglycerin/Dextrose (Nitroglycerin 50 Mg/250 Ml D5w) 50 mg in 250 mls @ 1.5 mls/hr IV .Q24H TEN; 5 MCG/MIN PRN Reason: Protocol Last Titration: 11/06/16 00:00 Dose: 10 mcg/min, 3 mls/hr Piperacillin Sod/Tazobactam (Sod 3.375 gm/ Sodium Chloride) 100 mls @ 200 mls/ hr IVPB Q8H [facility] Last Admin: 11/06/16 17:00 Dose: 200 mls/hr Heparin Sodium/Sodium Chloride (Heparin 70882 Units/250ml 1/2 Normal Saline) 25 ,000 units in 250 mls @ 9.89 mls/hr IV .Q24H PRN; Protocol; 11.16 UNITS/KG/HR PRN Reason: PROTOCOL Last Admin: 11/06/16 18:59 Dose: 11.16 units/kg/hr, 9.89 mls/hr Insulin Human Regular (Novolin R) 0 unit SC ACHS TEN PRN Reason: Protocol Last Admin: 11/06/16 17:34 Dose: 2 unit Losartan Potassium (Cozaar) 25 mg PO DAILY [facility] Last Admin: 11/06/16 11:05 Dose: 25 mg Rosuvastatin Calcium (Crestor) 40 mg PO HS [facility] Last Admin: 11/05/16 22:00 Dose: 40 mg - Labs Labs: 11/06/16 05:48 11/06/16 05:48 PT 12.2 SECONDS (9.7-12.2) 11/06/16 17:47 INR 1.1 11/06/16 17:47 APTT 35 SECONDS (21-34) H D 11/06/16 17:47
--- NOTE | 2016-11-06 20:05 | CARD ---
APPROVED REPORT EXAM: Two-dimensional and M-mode echocardiogram with Doppler and color Doppler. Other Information Quality : GoodRhythm : NSR INDICATION Non STEMI RISK FACTORS Hypertension Hyperlipidemia Diabetes 2D DIMENSIONS IVSd1.3 (0.7-1.1cm)LVDd3.9 (3.9-5.9cm) PWd1.2 (0.7-1.1cm)LVDs2.8 (2.5-4.0cm) FS (%) 27.7 %LVEF (%)50.0 (>50%) M-Mode DIMENSIONS Left Atrium (MM)3.67 (2.5-4.0cm)Aortic Root2.98 (2.2-3.7cm) Aortic Cusp Exc.2.00 (1.5-2.0cm) Mitral Valve MV E Eywkgmdg38.8cm/sMV A Fqnrpxio07.8cm/sE/A ratio1.1 TDI E/Lateral E'0.0E/Medial E'0.0 LEFT VENTRICLE The left ventricle is normal size. There is normal left ventricular wall thickness. The left ventricular function is mildly reduced. The left ventricular ejection fraction is mildly reduced, abotu 45%. There is akinesis of the apical-septal, anteroapical and inferoapcial hernandez. The left ventricular diastolic function is normal. No left ventricle thrombus noted on this study. There is no ventricular septal defect visualized. There is no left ventricular aneurysm. There is no mass noted in the left ventricle. RIGHT VENTRICLE The right ventricle is normal size. There is normal right ventricular wall thickness. The right ventricular systolic function is normal. ATRIA The left atrium size is normal. The right atrium size is normal. The interatrial septum is intact with no evidence for an atrial septal defect. AORTIC VALVE The aortic valve is normal in structure and function. No aortic regurgitation is present. There is no aortic valvular stenosis. There is no aortic valvular vegetation. MITRAL VALVE The mitral valve is normal in structure and function. There is no evidence of mitral valve prolapse. There is no mitral valve stenosis. There is no mitral valve regurgitation noted. TRICUSPID VALVE The tricuspid valve is normal in structure and function. There is no tricuspid valve regurgitation noted. There is no tricuspid valve prolapse or vegetation. There is no tricuspid valve stenosis. PULMONIC VALVE The pulmonary valve is normal in structure and function. There is no pulmonic valvular regurgitation. There is no pulmonic valvular stenosis. GREAT VESSELS The aortic root is normal in size. The ascending aorta is normal in size. The pulmonary artery is normal. The IVC is normal in size and collapses >50% with inspiration. PERICARDIAL EFFUSION The pericardium appears normal. There is no pleural effusion. <Conclusion> Ischemic heart disease. Normal Doppler. Mildly reduced overall LV systolic function.
--- NOTE | 2016-11-06 20:23 | CARD ---
APPROVED REPORT EKG Measurement Heart [id number] <Conclusion> Normal sinus rhythm T wave abnormality, consistent with anterolateral ischemia Prolonged QT Abnormal ECG
--- NOTE | 2016-11-06 20:26 | CARD ---
APPROVED REPORT EKG Measurement Heart [id number] <Conclusion> Sinus tachycardia Cannot rule out Anterior infarct, age undetermined T wave abnormality, consider lateral ischemia Prolonged QT Abnormal ECG
[2016-11-07] MEDS: Piperacillin/Tazobact 3.375 GM in Sodium Chloride 100 ML IVPB SCH ×2 (08:56→18:02)
[2016-11-07] MEDS: (Novolin R) Insulin Human Regular 100 units/ml vial SC SCH ×4 (09:05→21:15)
--- NOTE | 2016-11-07 15:54 | CP.PCM.PN ---
Subjective - Date & Time of Evaluation Date of Evaluation: 11/07/16 Time of Evaluation: 12:00 - Subjective Subjective: Attempted to see patient but patient is at [facility] for PCI. Objective - Vital Signs/Intake and Output Vital Signs (last 24 hours): Temp Pulse Resp BP Pulse Ox 99.5 F 88 16 143/109 H 96 11/07/16 08:00 11/07/16 09:05 11/07/16 09:05 11/07/16 09:05 11/07/16 09:05 Intake and Output: 11/07/16 11/07/16 06:59 18:59 Intake Total 1289.4 230 Output Total 1200 0 Balance 89.4 230 - Medications Medications: Current Medications Acetaminophen (Tylenol 325mg Tab) 650 mg PO Q6 PRN PRN Reason: for temp 101 and above Last Admin: 11/07/16 00:18 Dose: 650 mg Aspirin (Ecotrin) 81 mg PO DAILY [facility] Last Admin: 11/07/16 09:05 Dose: 81 mg Carvedilol (Coreg) 3.125 mg PO Q12 [facility] Last Admin: 11/07/16 09:05 Dose: 3.125 mg Clopidogrel Bisulfate (Plavix) 75 mg PO DAILY [facility] Last Admin: 11/07/16 09:05 Dose: 75 mg Famotidine (Pepcid) 20 mg PO BID [facility] Last Admin: 11/07/16 09:05 Dose: 20 mg Piperacillin Sod/Tazobactam (Sod 3.375 gm/ Sodium Chloride) 100 mls @ 200 mls/ hr IVPB Q8H [facility] Last Admin: 11/07/16 08:56 Dose: 200 mls/hr Heparin Sodium/Sodium Chloride (Heparin 36085 Units/250ml 1/2 Normal Saline) 25 ,000 units in 250 mls @ 9.89 mls/hr IV .Q24H PRN; Protocol; 11.16 UNITS/KG/HR PRN Reason: PROTOCOL Last Titration: 11/07/16 06:00 Dose: 0 units/kg/hr, 0 mls/hr Insulin Human Regular (Novolin R) 0 unit SC ACHS TEN PRN Reason: Protocol Last Admin: 11/07/16 09:05 Dose: Not Given Losartan Potassium (Cozaar) 25 mg PO DAILY [facility] Last Admin: 11/07/16 09:06 Dose: Not Given Rosuvastatin Calcium (Crestor) 40 mg PO HS [facility] Last Admin: 11/06/16 21:36 Dose: 40 mg - Labs Labs: 11/06/16 05:48 11/06/16 05:48 PT 12.2 SECONDS (9.7-12.2) 11/06/16 17:47 INR 1.1 11/06/16 17:47 APTT 226 SECONDS (21-34) H* D 11/07/16 00:36
--- NOTE | 2016-11-07 17:40 | CP.CCUPN ---
<Michelet Bird R - Last Filed: 11/07/16 17:38> CCU Subjective - Physician Review Subjective (Free Text): Patient not seen or examined as he is at [facility] today for PCI procedure with Dr Carrillo. 11/07/16 17:39 CCU Objective - Vital Signs / Intake & Output Intake and Output (Last 8hrs): Intake & Output 11/07/16 11/07/16 11/07/16 06:59 14:59 22:59 Intake Total 739.6 230 Output Total 600 0 Balance 139.6 230 Intake: IV 80 Intake, IV Amount 659.6 210 left arm 48.6 left forearm 590 210 left forearm 2nd port 21 Oral 20 Output: Urine 600 0 Urine, Voided 600 0 - Medications Active Medications: Active Medications Generic Name Dose Route Start Last Admin Trade Name Freq PRN Reason Stop Dose Admin Acetaminophen 650 mg 11/07/16 00:07 11/07/16 00:18 Tylenol 325mg Tab PO 650 mg Q6 PRN Administration for temp 101 and above Aspirin 81 mg 11/06/16 10:00 11/07/16 09:05 Ecotrin PO 81 mg DAILY TEN Administration Carvedilol 3.125 mg 11/06/16 10:00 11/07/16 09:05 Coreg PO 3.125 mg Q12 TEN Administration Clopidogrel Bisulfate 75 mg 11/06/16 10:00 11/07/16 09:05 Plavix PO 75 mg DAILY TEN Administration Famotidine 20 mg 11/05/16 18:15 11/07/16 09:05 Pepcid PO 20 mg BID TEN Administration Piperacillin Sod/Tazobactam 100 mls @ 200 mls/hr 11/06/16 08:00 11/07/16 08: 56 Sod 3.375 gm/ Sodium Chloride IVPB 200 mls/hr Q8H TEN Administration Heparin Sodium/Sodium Chloride 25,000 units in 250 mls @ 9.89 mls/hr 11/06/16 19:00 11/07/16 06:00 Heparin 24956 Units/250ml 1/2 Normal Saline IV 0 units/kg/hr .Q24H PRN 0 mls/hr PROTOCOL Titration Protocol 11.16 UNITS/KG/HR Insulin Human Regular 0 unit 11/05/16 22:00 11/07/16 09:05 Novolin R SC Not Given ACHS TEN Protocol Losartan Potassium 25 mg 11/06/16 10:00 11/07/16 09:06 Cozaar PO Not Given DAILY [facility] Rosuvastatin Calcium 40 mg 11/05/16 22:00 11/06/16 21:36 Crestor PO 40 mg HS [facility] Administration - Patient Studies Lab Studies: Microbiology Studies 11/05/16 23:30 Blood Culture - Preliminary Blood NO GROWTH AFTER 24 HOURS 11/05/16 23:00 Blood Culture - Preliminary Blood NO GROWTH AFTER 24 HOURS 11/05/16 17:15 MRSA Culture (Admit) - Final Naris MRSA NOT DETECTED Lab Studies 11/07/16 11/07/16 11/06/16 Range/Units 08:16 00:36 21:08 PT (9.7-12.2) SECONDS INR APTT 226 H* D (21-34) SECONDS POC Glucose (mg/dL) 199 H 311 H (65-110) mg/dL 11/06/16 Range/Units 17:47 PT 12.2 (9.7-12.2) SECONDS INR 1.1 APTT 35 H D (21-34) SECONDS POC Glucose (mg/dL) (65-110) mg/dL Laboratory Results - last 24 hr 11/06/16 11/06/16 11/07/16 17:47 21:08 00:36 PT 12.2 INR 1.1 APTT 35 H D 226 H* D POC Glucose (mg/dL) 311 H 11/07/16 08:16 PT INR APTT POC Glucose (mg/dL) 199 H Fingerstick Blood Sugar Results: 199 Critical Care Progress Note - Nutrition Nutrition: Nutrition Category Date Time Status NPO Diet [DIET] Diets 11/07/16 Breakfast Active Assessment/Plan (1) NSTEMI (non-ST elevated myocardial infarction) Current Visit: Yes Status: Acute (2) HTN (hypertension) Current Visit: Yes Status: Acute (3) HLD (hyperlipidemia) Current Visit: Yes Status: Chronic (4) Diabetes mellitus, new onset Current Visit: Yes Status: Acute (5) Abdominal pain Current Visit: Yes Status: Acute (6) Elevated WBC count Current Visit: Yes Status: Acute (7) Prophylactic measure Current Visit: Yes Status: Acute <Pepito Castillo P - Last Filed: 11/08/16 07:09> CCU Objective - Vital Signs / Intake & Output Vital Signs (Last 4 hours): Vital Signs Temp Pulse Resp BP Pulse Ox 11/08/16 07:01 123/74 11/08/16 07:00 75 17 98 11/08/16 06:01 133/88 11/08/16 06:00 84 25 H 94 L 11/08/16 05:13 80 22 147/104 H 99 11/08/16 04:01 130/85 11/08/16 04:00 99.5 F 80 22 97 Intake and Output (Last 8hrs): Intake & Output 11/07/16 11/08/16 11/08/16 22:59 06:59 14:59 Intake Total 240 340 Output Total 1000 Balance 240 -660 Intake: Intake, IV Amount 100 Right Antecubital 100 Oral 240 240 Output: Urine 1000 Urine, Voided 1000 Other: # Voids Urine, Voided 1 # Bowel Movements 1 - Medications Active Medications: Active Medications Generic Name Dose Route Start Last Admin Trade Name Freq PRN Reason Stop Dose Admin Acetaminophen 650 mg 11/07/16 00:07 11/07/16 00:18 Tylenol 325mg Tab PO 650 mg Q6 PRN Administration for temp 101 and above Aspirin 81 mg 11/06/16 10:00 11/07/16 09:05 Ecotrin PO 81 mg DAILY TEN Administration Carvedilol 3.125 mg 11/06/16 10:00 11/07/16 21:00 Coreg PO 3.125 mg Q12 TEN Administration Clopidogrel Bisulfate 75 mg 11/06/16 10:00 11/07/16 09:05 Plavix PO 75 mg DAILY TEN Administration Famotidine 20 mg 11/05/16 18:15 11/07/16 18:02 Pepcid PO Not Given BID TEN Piperacillin Sod/Tazobactam 100 mls @ 200 mls/hr 11/06/16 08:00 11/08/16 00: 05 Sod 3.375 gm/ Sodium Chloride IVPB 200 mls/hr Q8H TEN Administration Insulin Human Regular 0 unit 11/05/16 22:00 11/07/16 21:15 Novolin R SC Not Given ACHS TEN Protocol Losartan Potassium 50 mg 11/07/16 20:33 11/07/16 21:00 Cozaar PO 50 mg DAILY TEN Administration Rosuvastatin Calcium 40 mg 11/05/16 22:00 11/07/16 21:00 Crestor PO 40 mg HS TEN Administration - Patient Studies Lab Studies: Microbiology Studies 11/05/16 23:30 Blood Culture - Preliminary Blood NO GROWTH AFTER 24 HOURS 11/05/16 23:00 Blood Culture - Preliminary Blood NO GROWTH AFTER 24 HOURS Lab Studies 11/08/16 11/08/16 11/07/16 Range/Units 06:19 06:19 21:14 WBC 12.7 H (4.8-10.8) K/uL RBC 5.23 (4.40-5.90) Mil/uL Hgb 15.7 (12.0-18.0) g/dL Hct 46.6 (35.0-51.0) % MCV 89.2 (80.0-94.0) fL MCH 30.0 (27.0-31.0) pg MCHC 33.6 (33.0-37.0) g/dL RDW 12.1 (11.5-14.5) % Plt Count 124 L D (130-400) K/uL MPV 10.2 (7.2-11.7) fL Neut % (Auto) 51.0 (50.0-75.0) % Lymph % (Auto) 37.0 (20.0-40.0) % Banner % (Auto) 9.2 (0.0-10.0) % Eos % (Auto) 1.4 (0.0-4.0) % Baso % (Auto) 1.4 (0.0-2.0) % Neut # 6.5 (1.8-7.0) K/uL Lymph # 4.7 H (1.0-4.3) K/uL Banner # 1.2 H (0.0-0.8) K/uL Eos # 0.2 (0.0-0.7) K/uL Baso # 0.2 (0.0-0.2) K/uL Sodium 138 (132-148) mmol/L Potassium 4.2 (3.6-5.2) mmol/L Chloride 101 (98-107) mmol/L Carbon Dioxide 23 (22-30) mmol/L Anion Gap 19 (10-20) BUN 11 (9-20) mg/dL Creatinine 0.7 L (0.8-1.5) MG/DL Est GFR ( Amer) > 60 Est GFR (Non-Af Amer) > 60 POC Glucose (mg/dL) 227 H (65-110) mg/dL Random Glucose 185 H (75-110) mg/dL Calcium 8.9 (8.6-10.4) mg/dl Phosphorus 3.4 (2.5-4.5) mg/dL Magnesium 2.0 (1.6-2.3) mg/dL Total Bilirubin 0.8 (0.2-1.3) mg/dL AST 45 (17-59) U/L ALT 42 (21-72) U/L Alkaline Phosphatase 67 (38-126) U/L Total Protein 7.5 (6.3-8.3) g/dL Albumin 3.8 (3.5-5.0) g/dL Globulin 3.7 (2.2-3.9) gm/dL Albumin/Globulin Ratio 1.0 (1.0-2.1) 11/07/16 Range/Units 08:16 WBC (4.8-10.8) K/uL RBC (4.40-5.90) Mil/uL Hgb (12.0-18.0) g/dL Hct (35.0-51.0) % MCV (80.0-94.0) fL MCH (27.0-31.0) pg MCHC (33.0-37.0) g/dL RDW (11.5-14.5) % Plt Count (130-400) K/uL MPV (7.2-11.7) fL Neut % (Auto) (50.0-75.0) % Lymph % (Auto) (20.0-40.0) % Banner % (Auto) (0.0-10.0) % Eos % (Auto) (0.0-4.0) % Baso % (Auto) (0.0-2.0) % Neut # (1.8-7.0) K/uL Lymph # (1.0-4.3) K/uL Banner # (0.0-0.8) K/uL Eos # (0.0-0.7) K/uL Baso # (0.0-0.2) K/uL Sodium (132-148) mmol/L Potassium (3.6-5.2) mmol/L Chloride (98-107) mmol/L Carbon Dioxide (22-30) mmol/L Anion Gap (10-20) BUN (9-20) mg/dL Creatinine (0.8-1.5) MG/DL Est GFR ( Amer) Est GFR (Non-Af Amer) POC Glucose (mg/dL) 199 H (65-110) mg/dL Random Glucose (75-110) mg/dL Calcium (8.6-10.4) mg/dl Phosphorus (2.5-4.5) mg/dL Magnesium (1.6-2.3) mg/dL Total Bilirubin (0.2-1.3) mg/dL AST (17-59) U/L ALT (21-72) U/L Alkaline Phosphatase (38-126) U/L Total Protein (6.3-8.3) g/dL Albumin (3.5-5.0) g/dL Globulin (2.2-3.9) gm/dL Albumin/Globulin Ratio (1.0-2.1) Laboratory Results - last 24 hr 11/07/16 11/07/16 11/08/16 08:16 21:14 06:19 WBC 12.7 H RBC 5.23 Hgb 15.7 Hct 46.6 MCV 89.2 MCH 30.0 MCHC 33.6 RDW 12.1 Plt Count 124 L D MPV 10.2 Neut % (Auto) 51.0 Lymph % (Auto) 37.0 Banner % (Auto) 9.2 Eos % (Auto) 1.4 Baso % (Auto) 1.4 Neut # 6.5 Lymph # 4.7 H Banner # 1.2 H Eos # 0.2 Baso # 0.2 Sodium Potassium Chloride Carbon Dioxide Anion Gap BUN Creatinine Est GFR ( Amer) Est GFR (Non-Af Amer) POC Glucose (mg/dL) 199 H 227 H Random Glucose Calcium Phosphorus Magnesium Total Bilirubin AST ALT Alkaline Phosphatase Total Protein Albumin Globulin Albumin/Globulin Ratio 11/08/16 06:19 WBC RBC Hgb Hct MCV MCH MCHC RDW Plt Count MPV Neut % (Auto) Lymph % (Auto) Banner % (Auto) Eos % (Auto) Baso % (Auto) Neut # Lymph # Banner # Eos # Baso # Sodium 138 Potassium 4.2 Chloride 101 Carbon Dioxide 23 Anion Gap 19 BUN 11 Creatinine 0.7 L Est GFR ( Amer) > 60 Est GFR (Non-Af Amer) > 60 POC Glucose (mg/dL) Random Glucose 185 H Calcium 8.9 Phosphorus 3.4 Magnesium 2.0 Total Bilirubin 0.8 AST 45 ALT 42 Alkaline Phosphatase 67 Total Protein 7.5 Albumin 3.8 Globulin 3.7 Albumin/Globulin Ratio 1.0 Critical Care Progress Note - Nutrition Nutrition: Nutrition Category Date Time Status Heart Healthy Diet [DIET] Diets 11/08/16 Breakfast Active Attending/Attestation - Attestation I have personally seen and examined this patient.: Yes I have fully participated in the care of the patient.: Yes I have reviewed all pertinent clinical information: Yes Notes (Text): Patient came last night from [place] with left radial cath
--- NOTE | 2016-11-07 22:38 | CP.PCM.PN ---
Subjective - Date & Time of Evaluation Date of Evaluation: 11/07/16 Time of Evaluation: 18:45 - Subjective Subjective: Patient s/p LAD MATTHEW stent Plavix 75 daily for 1 year ASA 81, Statins, B blockers for life OOB to ambulate Resume diet D/C tomorrow if stable Objective - Vital Signs/Intake and Output Vital Signs (last 24 hours): Temp Pulse Resp BP Pulse Ox 99.5 F 90 18 157/95 H 100 11/07/16 08:00 11/07/16 22:01 11/07/16 22:01 11/07/16 22:01 11/07/16 22:01 Intake and Output: 11/07/16 11/08/16 18:59 06:59 Intake Total 230 240 Output Total 0 Balance 230 240 - Medications Medications: Current Medications Acetaminophen (Tylenol 325mg Tab) 650 mg PO Q6 PRN PRN Reason: for temp 101 and above Last Admin: 11/07/16 00:18 Dose: 650 mg Aspirin (Ecotrin) 81 mg PO DAILY [facility] Last Admin: 11/07/16 09:05 Dose: 81 mg Carvedilol (Coreg) 3.125 mg PO Q12 [facility] Last Admin: 11/07/16 21:00 Dose: 3.125 mg Clopidogrel Bisulfate (Plavix) 75 mg PO DAILY [facility] Last Admin: 11/07/16 09:05 Dose: 75 mg Famotidine (Pepcid) 20 mg PO BID [facility] Last Admin: 11/07/16 18:02 Dose: Not Given Piperacillin Sod/Tazobactam (Sod 3.375 gm/ Sodium Chloride) 100 mls @ 200 mls/ hr IVPB Q8H [facility] Last Admin: 11/07/16 18:02 Dose: Not Given Insulin Human Regular (Novolin R) 0 unit SC ACHS TEN PRN Reason: Protocol Last Admin: 11/07/16 21:15 Dose: Not Given Losartan Potassium (Cozaar) 50 mg PO DAILY [facility] Last Admin: 11/07/16 21:00 Dose: 50 mg Rosuvastatin Calcium (Crestor) 40 mg PO HS [facility] Last Admin: 11/07/16 21:00 Dose: 40 mg - Labs Labs: 11/06/16 05:48 11/06/16 05:48 PT 12.2 SECONDS (9.7-12.2) 11/06/16 17:47 INR 1.1 11/06/16 17:47 APTT 226 SECONDS (21-34) H* D 11/07/16 00:36
[2016-11-08] MEDS: Piperacillin/Tazobact 3.375 GM in Sodium Chloride 100 ML IVPB SCH ×2 (00:05→10:15)
[2016-11-08 06:32] LABS: BASO # 0.2 K/uL (0.0-0.2); BASO % 1.4 % (0.0-2.0); EOS # 0.2 K/uL (0.0-0.7); EOS % 1.4 % (0.0-4.0); HEMATOCRIT 46.6 % (35.0-51.0); LYMPH # 4.7 K/uL (1.0-4.3); MEAN CELL VOLUME 89.2 fL (80.0-94.0); MEAN CORPUSCULAR HGB CONC 33.6 g/dL (33.0-37.0); MEAN PLATELET VOLUME 10.2 fL (7.2-11.7); MONO # 1.2 K/uL (0.0-0.8); MONO % 9.2 % (0.0-10.0); NRBC % 0.1 % (0.0-2.0); RED CELL DISTRIBUTION WIDTH 12.1 % (11.5-14.5); WHITE BLOOD COUNT 12.7 K/uL (4.8-10.8)
[2016-11-08 06:50] LABS: CHLORIDE 101 mmol/L (98-107); SODIUM 138 mmol/L (132-148)
[2016-11-08 06:51] LABS: POTASSIUM 4.2 mmol/L (3.6-5.2)
[2016-11-08 06:52] LABS: GFR AFRICAN-AMERICAN > 60
[2016-11-08 06:53] LABS: ALKALINE PHOSPHATASE 67 U/L (38-126); ALT/SGPT 42 U/L (21-72); AST/SGOT 45 U/L (17-59); BILIRUBIN,TOTAL 0.8 mg/dL (0.2-1.3); BLOOD UREA NITROGEN 11 mg/dL (9-20); CARBON DIOXIDE 23 mmol/L (22-30); GLUCOSE,RANDOM 185 mg/dL (75-110); PHOSPHOROUS 3.4 mg/dL (2.5-4.5); TOTAL PROTEIN 7.5 g/dL (6.3-8.3)
[2016-11-08 06:54] LABS: CALCIUM 8.9 mg/dl (8.6-10.4)
[2016-11-08] MEDS: (Novolin R) Insulin Human Regular 100 units/ml vial SC SCH ×2 (10:14→13:31)
[2016-11-08 11:07] VITALS: BP 145/95; PULSE 74; RESP 19; O2SAT 96
[2016-11-08 11:14] VITALS: TEMP 98.4
--- NOTE | 2016-11-08 11:43 | CP.PCM.DIS ---
Provider - Provider Date of Admission: 11/05/16 16:44 Attending physician: Shweta Mccormick DO Primary care physician: Kesha Angel Consults: Dr. 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 On discharge: Aspirin 81mg PO 1x/daily. Plavix 75mg PO 1x/daily. Coreg 3.125mg PO 2x/day. Lipitor 20mg PO at night. Cozaar 50mg PO 1x/day. Patient advised to f/u with Dr. Carrillo' s office in 1 month. Advise for lifestyle modifications to control cardiac risk factors (2) NSTEMI (non-ST elevated myocardial infarction) Status: Resolved Comment: Patient is s/p PCI with MATTHEW on 11/07/16. On discharge: Aspirin 81mg PO 1x/daily. Plavix 75mg PO 1x/daily. Coreg 3.125mg PO 2x/day. Lipitor 20mg PO at night. Cozaar 50mg PO 1x/day. Patient advised to f/u with Dr. Carrillo's office in 1 month. Advise for lifestyle modifications to control cardiac risk factors (3) Diabetes mellitus, new onset Status: Chronic Comment: [id number]: 11.4. Patient to start Metformin 1000mg PO twice a day ; Glipize 5mg PO 1x/day. English Language Arts Teacher educator seen and evaluated patient today. Advised to follow-up with [employer] to free Metformin. Diabetes diet education also provided by drier and pulverizer tender. Upon discharge: 1) Metformin 1000mg PO 2x/day (60 tabs/1 refill). 2) Glipize 5mg PO 1x/day (30 tabs/ 1 refill). 3) EasyMax glucometer (1/no refill). 4) 1 month worth of test strips and lancets. Patient advised to make blood sugar diary; to check his sugars 4x a day; sugar to be take prior meals and this evening. (4) Elevated WBC count Status: Resolved Comment: Patient's white count is improving. Discussed with Infectious disease , patient does not need antibiotics. Blood cultures (11/06/16): no growth for 48 hours X2 and afebrile for 48 hours. (5) HTN (hypertension) Status: Chronic Comment: Coreg 3.125mg PO 2x/day. Lipitor 20mg PO at night. Cozaar 50mg PO 1x/ day. Advised to make blood pressure diary to adjust medications as outpatient (6) Hyperlipidemia Status: Chronic Comment: [facility] - Lab Results Lab Results: Micro Results 11/05/16 23:30 Blood Blood Culture - Preliminary NO GROWTH AFTER 48 HOURS 11/05/16 23:00 Blood Blood Culture - Preliminary NO GROWTH AFTER 48 HOURS 11/05/16 17:15 Naris MRSA Culture (Admit) - Final MRSA NOT DETECTED Most Recent Lab Values WBC 12.7 K/uL (4.8-10.8) H 11/08/16 06:19 RBC 5.23 Mil/uL (4.40-5.90) 11/08/16 06:19 Hgb 15.7 g/dL (12.0-18.0) 11/08/16 06:19 Hct 46.6 % (35.0-51.0) 11/08/16 06:19 MCV 89.2 fL (80.0-94.0) 11/08/16 06:19 MCH 30.0 pg (27.0-31.0) 11/08/16 06:19 MCHC 33.6 g/dL (33.0-37.0) 11/08/16 06:19 RDW 12.1 % (11.5-14.5) 11/08/16 06:19 Plt Count 124 K/uL (130-400) L D 11/08/16 06:19 MPV 10.2 fL (7.2-11.7) 11/08/16 06:19 Neut % (Auto) 51.0 % (50.0-75.0) 11/08/16 06:19 Lymph % (Auto) 37.0 % (20.0-40.0) 11/08/16 06:19 [place] % (Auto) 9.2 % (0.0-10.0) 11/08/16 06:19 Eos % (Auto) 1.4 % (0.0-4.0) 11/08/16 06:19 Baso % (Auto) 1.4 % (0.0-2.0) 11/08/16 06:19 Neut # 6.5 K/uL (1.8-7.0) 11/08/16 06:19 Lymph # 4.7 K/uL (1.0-4.3) H 11/08/16 06:19 [place] # 1.2 K/uL (0.0-0.8) H 11/08/16 06:19 Eos # 0.2 K/uL (0.0-0.7) 11/08/16 06:19 Baso # 0.2 K/uL (0.0-0.2) 11/08/16 06:19 PT 12.2 SECONDS (9.7-12.2) 11/06/16 17:47 INR 1.1 11/06/16 17:47 APTT 226 SECONDS (21-34) H* D 11/07/16 00:36 Sodium 138 mmol/L (132-148) 11/08/16 06:19 Potassium 4.2 mmol/L (3.6-5.2) 11/08/16 06:19 Chloride 101 mmol/L (98-107) 11/08/16 06:19 Carbon Dioxide 23 mmol/L (22-30) 11/08/16 06:19 Anion Gap 19 (10-20) 11/08/16 06:19 BUN 11 mg/dL (9-20) 11/08/16 06:19 Creatinine 0.7 MG/DL (0.8-1.5) L 11/08/16 06:19 Est GFR ( Amer) > 60 11/08/16 06:19 Est GFR (Non-Af Amer) > 60 11/08/16 06:19 POC Glucose (mg/dL) 255 mg/dL (65-110) H 11/08/16 11:13 Random Glucose 185 mg/dL (75-110) H 11/08/16 06:19 Hemoglobin A1c 11.4 % (4.2-6.5) H 11/06/16 04:04 Calcium 8.9 mg/dl (8.6-10.4) 11/08/16 06:19 Phosphorus 3.4 mg/dL (2.5-4.5) 11/08/16 06:19 Magnesium 2.0 mg/dL (1.6-2.3) 11/08/16 06:19 Total Bilirubin 0.8 mg/dL (0.2-1.3) 11/08/16 06:19 AST 45 U/L (17-59) 11/08/16 06:19 ALT 42 U/L (21-72) 11/08/16 06:19 Alkaline Phosphatase 67 U/L (38-126) 11/08/16 06:19 Total Creatine Kinase 416 U/L (55-170) H 11/06/16 04:04 CK-MB (Mass) 8.72 ng/mL (0.0-3.38) H 11/06/16 04:04 Troponin I 4.9400 ng/mL (0.00-0.120) H* 11/05/16 15:36 Troponin I, Quant 8.6600 ng/mL (0.00-0.120) H* 11/06/16 04:04 NT-Pro-B Natriuret Pep 1640 pg/mL (0-450) H 11/05/16 15:36 Total Protein 7.5 g/dL (6.3-8.3) 11/08/16 06:19 Albumin 3.8 g/dL (3.5-5.0) 11/08/16 06:19 Globulin 3.7 gm/dL (2.2-3.9) 11/08/16 06:19 Albumin/Globulin Ratio 1.0 (1.0-2.1) 11/08/16 06:19 Triglycerides 143 mg/dL (0-149) 11/06/16 04:04 Cholesterol 216 mg/dL (0-199) H 11/06/16 04:04 LDL Cholesterol Direct 171 mg/dL (0-129) H 11/06/16 04:04 HDL Cholesterol 40 mg/dL (30-70) 11/06/16 04:04 Amylase 61 U/L (30-110) 11/05/16 21:24 Lipase 58 U/L (23-300) 11/05/16 21:24 Procalcitonin 0.06 NG/ML (0.19-0.49) L 11/06/16 09:31 TSH 3rd Generation 0.32 mIU/L (0.46-4.68) L 11/06/16 04:04 Urine Color Yellow (YELLOW) 11/06/16 06:04 Urine Clarity Clear (Clear) 11/06/16 06:04 Urine pH 6.0 (5.0-8.0) 11/06/16 06:04 Ur Specific [place] 1.036 (1.003-1.030) H 11/06/16 06:04 Urine Protein 2+ mg/dL (NEGATIVE) H 11/06/16 06:04 Urine Glucose (UA) 3+ mg/dL (Normal) H 11/06/16 06:04 Urine Ketones 1+ mg/dL (NEGATIVE) H 11/06/16 06:04 Urine Blood Negative (NEGATIVE) 11/06/16 06:04 Urine Nitrate Negative (NEGATIVE) 11/06/16 06:04 Urine Bilirubin Negative (NEGATIVE) 11/06/16 06:04 Urine Urobilinogen Normal mg/dL (0.2-1.0) 11/06/16 06:04 Ur Leukocyte Esterase Neg Sonia/uL (Negative) 11/06/16 06:04 Urine WBC (Auto) < 1 /hpf (0-5) 11/06/16 06:04 Urine RBC (Auto) 9 /hpf (0-3) H 11/06/16 06:04 Urine Opiates Screen Negative (NEGATIVE) 11/05/16 15:36 Urine Methadone Screen Negative (NEGATIVE) 11/05/16 15:36 Ur Barbiturates Screen Negative (NEGATIVE) 11/05/16 15:36 Ur Phencyclidine Scrn Negative (NEGATIVE) 11/05/16 15:36 Ur Amphetamines Screen Negative (NEGATIVE) 11/05/16 15:36 U Benzodiazepines Scrn Negative (NEGATIVE) 11/05/16 15:36 U Oth Cocaine Metabols Negative (NEGATIVE) 11/05/16 15:36 U Cannabinoids Screen Negative (NEGATIVE) 11/05/16 15:36 Alcohol, Quantitative < 10 mg/dl (0-10) 11/05/16 15:36 - Hospital Course Hospital Course: As per H&P 41 year old Male presents to the ED today complaining of mid-sternal chest pain and left arm weakness. Patient states that last night around midnight he was awoken with mid-sternal chest pain rating it a 8/10 which kept him up all night , he denied diaphoresis. He stated he also had lumbar pain and diffuse abdominal pain for the previous two days which had resolved prior to the onset of chest pain. He denied any remitting or exacerbating factors. He states the chest pain resolved as he and his were driving to the hospital today. He endorses a headache but is otherwise currently asymptomatic. He denies dyspnea on exertion and states he is able to walk and climb stairs without issue. He denies shortness of breath, chest pain, blurry vision, fever, chills, diarrhea, vomiting, constipation, pain, cough, parasthesia or numbness. PMD: Dr Kesha Angel PMHx: HTN PSHx: denies Allergies: NKA Meds: denies Social Hx: 1/2 ppd smoker for past 20 years; drinks 2-3 drinks of etoh 3 times a week; unemployed; lives with his and child at home Fam Hx: Mother with HTN, DM; Father from kidney failure Patient admitted to the ICU. Interventional cardiology consulted on the case. Discharge Diagnoses: (1) NSTEMI (non-ST elevated myocardial infarction) Coronary Artery Disease Assessment and Plan: * Patient admitted to ICU for Non-STEMI * MULUGETA score: 3 points -> 13% risk at 14 days of all cause mortality, new or recurrent LA or need for revascularization (3 CAD risk factors, chest pain, positive troponin) * Cardiology (Dr. Carrillo) on the case * Patient underwent cardiac cath s/p LAD MATTHEW stent. * Echocardiogram (11/06/16): ischemic heart disease, normal doppler, mildly reduced overall LV systolic function Rx: * Aspirin 81mg PO daily * Plavix 75mg PO daily * Coreg 3.125mg PO BID * Losartan 50mg PO daily * Lipitor 20mg PO qHS * Patient advised to f/u with Dr. Carrillo's office in 1 month. Advise for lifestyle modifications to control cardiac risk factors * Troponin: 4.94-->10.000-->8.66 Status: Acute (2) HTN (hypertension) Assessment and Plan: Rx. * Coreg 3.125mg PO BID * Losartan 50mg PO daily Status: Chronic (3) HLD (hyperlipidemia) Assessment and Plan: * Triglycerides 151, Cholesterol 258, LDL 207, HDL 47 * English Language Arts Teacher referral and staff development educator meet with the patient * Advocated for life-style/exercise modifications at bedside Rx: * Lipitor 20mg PO qHS Status: Chronic (4) Diabetes mellitus, new onset Assessment and Plan: * HgA1C:11.4 * T, cholestrol: 216, LDL:171, HDL: 40 * English Language Arts Teacher referral; Diabetic nurse education referral Rx: * 1) Metformin 1000mg PO 2x/day (60 tabs/1 refill). * 2) Glipizide 5mg PO 1x/day (30 tabs/ 1 refill). * 3) EasyMax glucometer (1/no refill). * 4) 1 month worth of test strips and lancets. * Patient advised to make blood sugar diary; to check his sugars 4x a day; sugar to be take prior meals and this evening. Status: Chronic (5) Abdominal pain Assessment and Plan: * Resolved * amylase: 61 * lipase: 58 * abdominal ultrasound (11/06): mild hepatomegaly. Diffuse increased echogenicity in the liver may reflect hepatic steatosis, however parenchymal infectious/inflammatory etiologies cannot be entirely excluded Status: Resolved (6) Elevated WBC count Assessment and Plan: * Infectious disease (Dr. Virgen) on the case-->discussed with ID, patient does not need antibiotics on discharge * Downtrending * UA positive for protein (3+), glucose (2+), ketone (1+), and RBC (4) * Blood culture (11/05): no growth for 48 hours X2 * Urine culture: no growth * Afebrile for 48 hours * chest xray (11/05/16): no active disease * procalcitonin: 0.06 Status: Acute (7) Alcohol Use Assessment and Plan: * Patient is not active withdrawal * No tremors. advised to curb alcohol use Status: Chronic (8) Tobacco abuse; Tobacco cessation Assessment and Plan: * Patient is off smoking for one week on his own prior to hospitalization; patient offered patch to help curb; will think about it Status: Chronic - Date & Time of H&P Date of H&P: 11/05/16 Time of H&P: 18:12 Discharge Exam - Head Exam Head Exam: NORMAL INSPECTION, NORMOCEPHALIC - Eye Exam Eye Exam: EOMI - ENT Exam ENT Exam: Mucous Membranes Moist - Respiratory Exam Respiratory Exam: Clear to PA & Lateral, NORMAL BREATHING PATTERN. absent: Rales, Rhonchi - Cardiovascular Exam Cardiovascular Exam: REGULAR RHYTHM, +S1, +S2 - GI/Abdominal Exam GI & Abdominal Exam: Normal Bowel Sounds, Soft. absent: Distended, Firm, Guarding, Rebound, Rigid, Tenderness Additional comments: obesity body habitus - Extremities Exam Extremities exam: pedal pulses present - Back Exam Back exam: absent: paraspinal tenderness, rash noted - Neurological Exam Neurological exam: Alert, CN II-XII Intact, Oriented x3 - Psychiatric Exam Psychiatric exam: Normal Affect, Normal Mood - Skin Skin Exam: Dry, Intact, Normal Color, Warm Discharge Plan - Follow Up Plan Condition: STABLE Disposition: HOME/ ROUTINE Patient education suggested?: Yes Instructions: Myocardial Infarction (DC), Coronary Artery Disease (DC), How to Check Your Blood Sugar (DC), Weight Management (DC) Referrals: Shira Angel MD [Staff Provider] - 1 Day Moshe Carrillo MD [Staff Provider] - 4 Weeks (Call Dr. Carrillo office.)
--- NOTE | 2016-11-09 17:39 | CARDCATH ---
PROCEDURE DATE: 11/06/2016 PROCEDURES: 1. Left heart catheterization. 2. Coronary angiogram. REFERRING PHYSICIAN: Ladonna Angel DPM PERFORMING PHYSICIAN: Moshe Carrillo MD CLINICAL INDICATIONS: 1. Chest pain. 2. Non-ST elevation myocardial infarction. 3. Diabetes. 4. Hypertension. 5. Hyperlipidemia. PROCEDURE IN DETAIL: After information consent, the patient was prepped and draped in the usual sterile fashion. The 2% lidocaine was given in the right for local anesthesia. Using micropuncture technique 6-[place] sheath was introduced into right radial artery. Using the usual diagnostic catheters, left heart catheterization and coronary angiogram was performed. The patient tolerated the procedure well. FINDINGS: 1. Left main coronary artery is patent. 2. Mid LAD has a 99% critical concentric stenosis. Proximal, distal LAD, and diagonal branches are patent. 3. Left circumflex is patent and obtuse marginal branches are patent. 4. Right coronary artery is dominant and patent, however, small distal PLV has 99% stenosis. 5. LV ejection fraction approximately 40%. Anterior and apical wall hypokinesis noted. Low grade index of aortic valve. EDP is 20. IMPRESSION AND PLAN: 1. Critical single vessel left anterior descending coronary artery disease. 2. PLV has 99% stenosis, however, it is a small artery. Recommend medical management for this lesion. 3. The patient will be transferred to [place] for LAD intervention. Moshe Carrillo MD
--- NOTE | 2016-11-14 18:40 | CARD ---
APPROVED REPORT EKG Measurement Heart [id number] TN [id number] <Conclusion> Normal sinus rhythm ST & T wave abnormality, consider anterolateral ischemia Prolonged QT Abnormal ECG
== END 2016-11-08 14:58 | disposition home or self-care (01) | DRG 122 ==
LOC: C.ER 14:12 → C.9I 16:44
PROVIDERS: ADMIT Hospitalist; ATTEND Hospitalist
PROC: 4A023N7 Measurement of Cardiac Sampling and Pressure, Left Heart, Percutaneous Approach (ICD-10-PCS; principal; 2016-11-06)
PROC: B2111ZZ Fluoroscopy of Multiple Coronary Arteries using Low Osmolar Contrast (ICD-10-PCS; 2016-11-06)
DX: I21.4 Non-ST elevation (NSTEMI) myocardial infarction (principal); I11.9 Hypertensive heart disease without heart failure; E11.9 Type 2 diabetes mellitus without complications; D72.829 Elevated white blood cell count, unspecified; E03.9 Hypothyroidism, unspecified; E78.5 Hyperlipidemia, unspecified; F17.210 Nicotine dependence, cigarettes, uncomplicated; E66.9 Obesity, unspecified; Z68.33 Body mass index [BMI] 33.0-33.9, adult; M54.5 Low back pain; R10.84 Generalized abdominal pain; F10.10 Alcohol abuse, uncomplicated; R51 Headache